=== PATIENT | female | born 1985 | race Caucasian/White ===

== ENCOUNTER 2017-11-20 13:09 | Emergency (ER) | payer MEDICAID ==
[~2017-11-20] VITALS: Ht 170.2 cm; Wt 103.0 kg
[~2017-11-20 13:09] MED LIST: CITA40TA19; CPR500T PO; METR500T PO; PENI500T PO; TRM50T PO
--- NOTE | 2017-11-20 13:55 | ED General ---
General Chief Complaint: Cough/Cold/Flu Symptoms Stated Complaint: MISSED PERIOD FOR 2 MOS/COUGH/RUNNY NOSE/FEVER Nursing Triage Note: first c/o is no period for 2 months. clinic did urine and lab draw 2 days ago- results neg. also staes daughter had flu and she has fever cough and soa since wed. Nursing Sepsis Screen: No Definite Risk Source of Information: Patient Exam Limitations: No Limitations History of Present Illness Date Seen by Provider: Nov 20, 2017 Time Seen by Provider: 13:53 Initial Comments To ER with reports of cough runny nose sore throat for 2 days. States that her daughter and sister tested positive for influenza. Also states that she's not had a period for 2 months which is very unusual for her. She has been seen by her primary care with a negative test. Denies abdominal pain. Timing/Duration: 1-2 Days Severity: Moderate Allergies and Home Medications Allergies Uncoded Allergies: CLINDOMYCIN (Allergy, Unknown, 11/20/17) hives Constitutional: see HPI EENTM: see HPI Respiratory: no symptoms reported Cardiovascular: no symptoms reported Genitourinary: no symptoms reported Musculoskeletal: no symptoms reported Skin: no symptoms reported Psychiatric/Neurological: No Symptoms Reported Hematologic/Lymphatic: No Symptoms Reported Past Onjnxsg-Eqites-Ijbhbt Hx Patient Social History Alcohol Use: Denies Use Recreational Drug Use: No 2nd Hand Smoke Exposure: No Recent Foreign Travel: No Contact w/Someone Who Travel: No Recent Infectious Disease Expo: Yes Recent Hopitalizations: No () Physical Abuse: No Sexual Abuse: No Mistreated: No Fear: No Immunizations Up To Date Tetanus Booster (TDap): Unknown Surgeries History of Surgeries: Yes ( x2) Respiratory History of Respiratory Disorde: No Cardiovascular History of Cardiac Disorders: No Neurological History of Neurological Disord: No Reproductive System Hx Reproductive Disorders: No (last pap smear was approx 1 year ago, denies h/ o an abnormal pap) Sexually Transmitted Disease: No Female Reproductive Disorders: Denies Genitourinary Genitourinary Disorders: Bladder Infection Gastrointestinal History of Gastrointestinal Di: No Musculoskeletal History of Musculoskeletal Dis: Yes Endocrine History of Endocrine Disorders: No Psychosocial History of Psychiatric Problem: Yes Behavioral Health Disorders: Depression Suicide Risk Score: 0 Integumentary History of Skin or Integumenta: No Blood Transfusions History of Blood Disorders: No Family Medical History Significant Family History: No Pertinent Family Hx Physical Exam Vital Signs Vital Signs - First Documented 11/20/17 13:27 Temp 100.0 Pulse 88 Resp 20 B/P (MAP) 134/90 (105) Pulse Ox 98 Capillary Refill : Less Than 3 Seconds General Appearance: No Apparent Distress, WD/WN Eyes: Bilateral Eye Normal Inspection, Bilateral Eye PERRL, Bilateral Eye EOMI HEENT: PERRL/EOMI, TMs Normal, Tonsillar Enlargement Respiratory: No Accessory Muscle Use, No Respiratory Distress Cardiovascular: Regular Rate, Rhythm Gastrointestinal: Normal Bowel Sounds Extremity: Normal Capillary Refill, Normal Inspection Neurologic/Psychiatric: Alert Skin: Normal Color, Warm/Dry Progress/Results/Core Measures Suspected Sepsis Recent Fever Within 48 Hours: Yes Infection Criteria Present: Suspected New Infection New/Unexplained Altered Menta: No Sepsis Screen: No Definite Risk Sepsis Diagnosis: SIRS Temperature:100.0 Pulse: 88 Respiratory Rate: 20 Blood Pressure 134 /90 Mean: 105 Results/Orders Vital Signs/I&O Vital Sign - Last 12Hours 11/20/17 13:27 Temp 100.0 Pulse 88 Resp 20 B/P (MAP) 134/90 (105) Pulse Ox 98 Capillary Refill : Less Than 3 Seconds Blood Pressure Mean: 105 Point of Care Testing Urine -Bedside: Negative Departure Impression Impression: Primary Impression: Influenza-like symptoms Disposition: 01 HOME, SELF-CARE Condition: Stable Departure-Patient Inst. Decision time for Depature: 13:54 Referrals: MARYA SELLERS DENNIS G MD NO,LOCAL PHYSICIAN (PCP) Primary Care Physician LINDSAY COCHRAN DO Patient Instructions: Flu, Adult (DC) Add. Discharge Instructions: 1. Call one of the curtain cleaner of your choosing today or Thursday to make an appointment to be seen. All discharge instructions reviewed with patient and/or family. Voiced understanding. ALEXANDER PAVON APRN Nov 20, 2017 13:55
[2017-11-20 14:50] VITALS: BP 134/90
--- OUTSIDE RECORDS SUMMARY | 2017-11-20 17:05 | XMS REPORT ---
Author Author MOMO ROSALES Organization [facility] Address [address] [place] [address] Care Team Providers Care Motor Vehicle Dispatcher Name Role Phone MOMO ROSALES Unavailable PROBLEMS Type Condition ICD9-CM Code [id number] Code Onset Dates Condition Status SNOMED Code Problem test positive V72.42 Active 267776868 Problem Gastroesophageal reflux disease, esophagitis presence not specified K21.9 Active 852679798 Problem Episodic mood disorder F39 Active 14150146 Problem Asthma, unspecified, unspecified status 493.90 Active 56881822 Problem Migraine, unspecified without mention of intractable migraine without mention of status migrainosus 346.90 Active 23849711 Problem Dysthymia F34.1 Active 31746332 Problem Bipolar depression F31.30 Active 98904552 Problem Abnormal menses N92.6 Active 452805888 Problem Rhinitis due to pollen J30.1 Active 51849673 Problem Dysuria R30.0 Active 99540573 Problem Mild intermittent asthma without complication J45.20 Active 009052617 ALLERGIES No Information SOCIAL HISTORY Never Assessed PLAN OF CARE VITAL SIGNS MEDICATIONS Medication Instructions Dosage Frequency Start Date End Date Duration Status [place]-28 0.15-30 MG-MCG Orally Once a day as directed 24h Jun, 90 days Active RESULTS No Results PROCEDURES No Known procedures IMMUNIZATIONS No Known Immunizations MEDICAL (GENERAL) HISTORY Type Description Date Medical History depression Medical History anxiety Medical History bipolar disorder Surgical History section 2006, 2007, 2009, 2015 Hospitalization History childbirth
--- OUTSIDE RECORDS SUMMARY | 2017-11-20 17:05 | XMS REPORT ---
Author Author MARYA ZAMAN [facility] Address [address] [place] [address] Care Team Providers Care Animal Care Taker Name Role Phone MARYA ZAMAN Unavailable PROBLEMS Type Condition ICD9-CM Code WBS11-II Code Onset Dates Condition Status SNOMED Code Problem Migraine, unspecified without mention of intractable migraine without mention of status migrainosus 346.90 Active 62971558 Problem test positive V72.42 Active 948807252 Problem Asthma, unspecified, unspecified status 493.90 Active 73878867 Problem Dysuria R30.0 Active 01376874 Problem Mild intermittent asthma without complication J45.20 Active 946730464 Problem Episodic mood disorder F39 Active 25326763 Problem Gastroesophageal reflux disease, esophagitis presence not specified K21.9 Active 205412966 Problem Rhinitis due to pollen J30.1 Active 83766167 Problem Abnormal menses N92.6 Active 492431119 ALLERGIES Unknown Allergies SOCIAL HISTORY No smoking Hx information available PLAN OF CARE VITAL SIGNS MEDICATIONS Medication Instructions Dosage Frequency Start Date End Date Duration Status Loratadine 10 mg Orally Once a day 1 tablet 24h Active RESULTS No Results PROCEDURES No Known procedures IMMUNIZATIONS No Known Immunizations
--- OUTSIDE RECORDS SUMMARY | 2017-11-20 17:05 | XMS REPORT ---
Author Author MOMO ROSALES Organization [facility] Address [address] [place] [address] Care Team Providers Care Staff Nurse Anesthetist Name Role Phone MOMO ROSALES Unavailable PROBLEMS Type Condition ICD9-CM Code [id number] Code Onset Dates Condition Status SNOMED Code Problem Migraine, unspecified without mention of intractable migraine without mention of status migrainosus 346.90 Active 77457273 Problem test positive V72.42 Active 441384860 Problem Asthma, unspecified, unspecified status 493.90 Active 26538442 Problem Dysuria R30.0 Active 37601852 Problem Mild intermittent asthma without complication J45.20 Active 099263304 Problem Episodic mood disorder F39 Active 40677737 Problem Gastroesophageal reflux disease, esophagitis presence not specified K21.9 Active 028102817 Problem Rhinitis due to pollen J30.1 Active 54968771 Problem Abnormal menses N92.6 Active 635339925 ALLERGIES Unknown Allergies SOCIAL HISTORY No smoking Hx information available PLAN OF CARE VITAL SIGNS MEDICATIONS Medication Instructions Dosage Frequency Start Date End Date Duration Status [place]-28 0.15-30 MG-MCG Orally as directed as directed Jun, Active RESULTS No Results PROCEDURES No Known procedures IMMUNIZATIONS No Known Immunizations
--- OUTSIDE RECORDS SUMMARY | 2017-11-20 17:05 | XMS REPORT ---
Author Author MOMO ROSALES Organization [facility] Address [address] [place] [address] Care Team Providers Care Bag Cutter Name Role Phone MOMO ROSALES Unavailable PROBLEMS Type Condition ICD9-CM Code [id number] Code Onset Dates Condition Status SNOMED Code Problem test positive V72.42 Active 463688673 Problem Gastroesophageal reflux disease, esophagitis presence not specified K21.9 Active 288404688 Problem Episodic mood disorder F39 Active 24197476 Problem Asthma, unspecified, unspecified status 493.90 Active 47375655 Problem Migraine, unspecified without mention of intractable migraine without mention of status migrainosus 346.90 Active 01587524 Problem Dysthymia F34.1 Active 94437194 Problem Bipolar depression F31.30 Active 37102503 Problem Abnormal menses N92.6 Active 760729314 Problem Rhinitis due to pollen J30.1 Active 64252598 Problem Dysuria R30.0 Active 76813385 Problem Mild intermittent asthma without complication J45.20 Active 924792466 ALLERGIES Substance Reaction Event Type Date Status Clindamycin rash Drug Allergy February, Active SOCIAL HISTORY Never Assessed PLAN OF CARE Activity Details Follow Up prn Reason: VITAL SIGNS Height 67.25 in 2017-02-12 Weight 244.1 lbs 2017-02-12 Temperature 98 degrees Fahrenheit 2017-02-12 Heart Rate 74 bpm 2017-02-12 Respiratory Rate 16 2017-02-12 BMI 37.94 kg/m2 2017-02-12 Blood pressure systolic 128 mmHg 2017-02-12 Blood pressure diastolic 70 mmHg 2017-02-12 MEDICATIONS Medication Instructions Dosage Frequency Start Date End Date Duration Status [place]-28 0.15-30 MG-MCG Orally Once a day as directed 24h Jun, 30 days Active Prilosec 40 MG TAKE ONE (1) CAPSULE BY MOUTH ONCE DAILY... Active Albuterol Sulfate HFA 108 (90 Base) MCG/ACT Inhalation every 4 hrs 2 puffs as needed 4h 04 Mar, 2015 Active Venlafaxine HCl 100 MG Orally twice a day 1 tablet with food 12h Oct, Active Lamictal 100 mg Orally Once a day 1 tablets qhs 24h Oct, Active RESULTS Name Result Date Reference Range TEST, URINE (IN HOUSE) 2017-02-12 RESULTS negative Lot # [id number] Control + Exp date 02/01/2018 PROCEDURES Procedure Date Ordered Result Body Site URINE TEST February 12, 2017 IMMUNIZATIONS No Known Immunizations MEDICAL (GENERAL) HISTORY Type Description Date Medical History depression Medical History anxiety Medical History bipolar disorder Surgical History section 2006, 2007, 2009, 2015 Hospitalization History childbirth
--- OUTSIDE RECORDS SUMMARY | 2017-11-20 17:05 | XMS REPORT ---
Author Author MARYA ZAMAN [facility] Address [address] [place] [address] Care Team Providers Care Informatics Physician Liaison Name Role Phone MARYA ZAMAN Unavailable PROBLEMS Type Condition ICD9-CM Code SMS02-EA Code Onset Dates Condition Status SNOMED Code Problem test positive V72.42 Active 780845855 Problem Gastroesophageal reflux disease, esophagitis presence not specified K21.9 Active 503519329 Problem Episodic mood disorder F39 Active 46837931 Problem Asthma, unspecified, unspecified status 493.90 Active 09073465 Problem Migraine, unspecified without mention of intractable migraine without mention of status migrainosus 346.90 Active 28313830 Problem Dysthymia F34.1 Active 38792596 Problem Bipolar depression F31.30 Active 52304522 Problem Abnormal menses N92.6 Active 635256280 Problem Rhinitis due to pollen J30.1 Active 50474653 Problem Dysuria R30.0 Active 91110621 Problem Mild intermittent asthma without complication J45.20 Active 574719368 ALLERGIES No Information SOCIAL HISTORY Never Assessed PLAN OF CARE VITAL SIGNS MEDICATIONS No Known Medications RESULTS No Results PROCEDURES No Known procedures IMMUNIZATIONS No Known Immunizations MEDICAL (GENERAL) HISTORY Type Description Date Medical History depression Medical History anxiety Medical History bipolar disorder Surgical History section 2006, 2007, 2009, 2015 Hospitalization History childbirth
--- OUTSIDE RECORDS SUMMARY | 2017-11-20 17:05 | XMS REPORT ---
Author Author MARYA ZAMAN [facility] [employer] Address Unknown Phone Unavailable Care Team Providers Care Insole Reinforcer Name Role Phone MARYA ZAMAN CP Unavailable Allergies, Adverse Reactions, Alerts Substance Reaction Event Type Clindamycin rash Drug Allergy Problems Problem Type Condition Code Onset Dates Condition Status Assessment Mild intermittent asthma without complication J45.20 Active Assessment Episodic mood disorder F39 Active Problem Heartburn 787.1 Active Problem Other specified symptom associated with female genital organs 625.8 Active Problem Abdominal pain, other specified site 789.09 Active Problem Leukorrhea, not specified as infective 623.5 Active Problem Felon 681.01 Active Problem Unspecified episodic mood disorder 296.90 Active Problem Unspecified acute nonsuppurative otitis media 381.00 Active Problem Allergic rhinitis, cause unspecified 477.9 Active Problem Unspecified infective otitis externa 380.10 Active Problem Rhinitis due to pollen J30.1 Active Problem Abnormal menses N92.6 Active Problem Candidiasis of vulva and vagina 112.1 Active Problem General counseling for prescription of oral contraceptives V25.01 Active Problem Mild intermittent asthma without complication J45.20 Active Problem Periapical abscess without sinus 522.5 Active Problem test positive V72.42 Active Problem Cellulitis and abscess of leg, except foot 682.6 Active Problem Episodic mood disorder F39 Active Problem Gastroesophageal reflux disease, esophagitis presence not specified K21.9 Active Problem Migraine, unspecified without mention of intractable migraine without mention of status migrainosus 346.90 Active Problem Screening for malignant neoplasm of the cervix V76.2 Active Problem Unspecified disorder of menstruation and other abnormal bleeding from female genital tract 626.9 Active Problem Screening examination for venereal disease V74.5 Active Problem Unspecified breast screening V76.10 Active Problem Unspecified contraceptive management V25.9 Active Problem Asthma, unspecified, unspecified status 493.90 Active Problem Ingrowing nail 703.0 Active Medications Medication Code System Code Instructions Start Date End Date Status Dosage Albuterol Sulfate A [facility] [address]-22 108 (90 Base) MCG/ACT Inhalation every 4 hrs March 08, 2015 2 puffs as needed Loratadine [facility] [address]-11 10 mg Orally Once a day January 03, 2016 1 tablet Sertraline HCl [facility] [address]-39 100 MG Orally Once a day March 08, 2015 1 tablet Ortho-Cyclen (28) [facility] [address]-58 0.25-35 MG-MCG Orally Once a day January 03, 2016 1 tablet Omeprazole [facility] [address]-26 40 MG Orally Once a day Nov 28, 2015 1 capsule Lamictal [facility] [address]-67 25 MG Orally Once a day at hs March 08, 2015 2tablets Procedures Procedure Coding System Code Date Office Visit, Est Pt., Level 3 CPT-4 93089 January 17, 2016 Vital Signs Date/Time: January 17, 2016 Temperature 97.2 F Weight 235.8 lbs Height 67.25 in BMI 36.65 Index Blood Pressure Diastolic 71 mmHg Blood Pressure Systolic 121 mmHg Cardiac Monitoring Heart Rate 76 bpm Results No Known Results Summary Purpose [employer] Submission
--- OUTSIDE RECORDS SUMMARY | 2017-11-20 17:05 | XMS REPORT ---
Author Author MARYA ZAMAN [facility] Address [address] [place] [address] Care Team Providers Care Tree Planter Name Role Phone MARYA ZAMAN Unavailable PROBLEMS Type Condition ICD9-CM Code TIP00-WU Code Onset Dates Condition Status SNOMED Code Problem test positive V72.42 Active 940701641 Problem Gastroesophageal reflux disease, esophagitis presence not specified K21.9 Active 580817297 Problem Episodic mood disorder F39 Active 13585948 Problem Asthma, unspecified, unspecified status 493.90 Active 65199169 Problem Migraine, unspecified without mention of intractable migraine without mention of status migrainosus 346.90 Active 47142737 Problem Dysthymia F34.1 Active 87493610 Problem Bipolar depression F31.30 Active 25929899 Problem Abnormal menses N92.6 Active 745931049 Problem Rhinitis due to pollen J30.1 Active 46524030 Problem Dysuria R30.0 Active 71528836 Problem Mild intermittent asthma without complication J45.20 Active 933042955 ALLERGIES No Information SOCIAL HISTORY Never Assessed PLAN OF CARE VITAL SIGNS MEDICATIONS Medication Instructions Dosage Frequency Start Date End Date Duration Status Venlafaxine HCl 75 MG Orally Once a day 1 tablet with food 24h Oct, Active RESULTS No Results PROCEDURES No Known procedures IMMUNIZATIONS No Known Immunizations MEDICAL (GENERAL) HISTORY Type Description Date Medical History depression Medical History anxiety Medical History bipolar disorder Surgical History section 2006, 2008, 2009, 2016 Hospitalization History childbirth
--- OUTSIDE RECORDS SUMMARY | 2017-11-20 17:05 | XMS REPORT ---
Author Author MOMO ROSALES [facility] Address [address] [place] [address] Care Team Providers Care Hog Cutter Name Role Phone MOMO ROSALES Unavailable PROBLEMS Type Condition ICD9-CM Code YSF76-XL Code Onset Dates Condition Status SNOMED Code Assessment Encounter for surveillance of transdermal patch hormonal contraceptive device Z30.49 16 Jun, 2016 Active 638849949 Problem Asthma, unspecified, unspecified status 493.90 Active 30746721 Problem Migraine, unspecified without mention of intractable migraine without mention of status migrainosus 346.90 Active 32686155 Assessment Bruising T14.8 16 Jun, 2016 Active 075781064 Assessment Contraceptive education Z30.09 16 Jun, 2016 Active 922751232 Problem Mild intermittent asthma without complication J45.20 Active 811832600 Problem Rhinitis due to pollen J30.1 Active 70437600 Problem Gastroesophageal reflux disease, esophagitis presence not specified K21.9 Active 795832034 Problem test positive V72.42 Active 194514385 Problem Abnormal menses N92.6 Active 971499551 Problem Episodic mood disorder F39 Active 86138636 ALLERGIES Substance Reaction Event Type Date Status Clindamycin rash Drug Allergy Jun, Active SOCIAL HISTORY No smoking Hx information available PLAN OF CARE VITAL SIGNS Height 67.25 in 2016-06-20 Weight 251.2 lbs 2016-06-20 BMI 39.05 kg/m2 2016-06-20 MEDICATIONS Medication Instructions Dosage Frequency Start Date End Date Duration Status Loratadine 10 mg Orally Once a day 1 tablet 24h Active HydrOXYzine HCl 25 MG Orally Once a day 1-2 tablet as needed at bedtime 24h Active Omeprazole 40 mg Orally Once a day 1 capsule 24h Nov, Active Latuda 60 MG Orally Once a day 1 tablet with food 24h Active Albuterol Sulfate HFA 108 (90 Base) MCG/ACT Inhalation every 4 hrs 2 puffs as needed 4h Mar, Active Norelgestromin-Eth Estradiol 150-35 MCG/24HR 1 patch to skin 16 Jun, 2016 21 day(s) Active Ortho-Cyclen (28) 0.25-35 MG-MCG Orally Once a day 1 tablet 24h Dec, Active RESULTS Name Result Date Reference Range HEMOGLOBIN (IN HOUSE) 2016-06-20 HEMOGLOBIN 12.0 11.5 - 16 gm/dL Lot # [id number] Exp date 11/15/16 TEST, URINE (IN HOUSE) 2016-06-20 RESULTS neg Lot # [id number] Control + Exp date 12/20 PROCEDURES Procedure Date Ordered Related Diagnosis Body Site URINE TEST Jun 20, 2016 Office Visit, Est Pt., Level 3 Jun 20, 2016 HEMOGLOBIN Jun 20, 2016 IMMUNIZATIONS No Known Immunizations
--- OUTSIDE RECORDS SUMMARY | 2017-11-20 17:05 | XMS REPORT ---
Author Author MOMO ROSALES [facility] Address [address] [place] [address] Care Team Providers Care Sharepoint Net Developer Name Role Phone MOMO ROSALES Unavailable PROBLEMS Type Condition ICD9-CM Code PGD55-WT Code Onset Dates Condition Status SNOMED Code Problem Migraine, unspecified without mention of intractable migraine without mention of status migrainosus 346.90 Active 70466466 Problem test positive V72.42 Active 346026183 Problem Asthma, unspecified, unspecified status 493.90 Active 28792016 Assessment Frequency of urination R35.0 Jun, Active 405325239 Assessment Encounter for initial prescription of contraceptive pills Z30.011 Jun, Active 88700051 Problem Dysuria R30.0 Active 07982050 Problem Mild intermittent asthma without complication J45.20 Active 031430755 Problem Episodic mood disorder F39 Active 32152459 Problem Gastroesophageal reflux disease, esophagitis presence not specified K21.9 Active 331801067 Problem Rhinitis due to pollen J30.1 Active 72476083 Problem Abnormal menses N92.6 Active 641921122 ALLERGIES Substance Reaction Event Type Date Status Clindamycin rash Drug Allergy Jun, Active SOCIAL HISTORY No smoking Hx information available PLAN OF CARE VITAL SIGNS Height 67.25 in 2016-07-03 Weight 252 lbs 2016-07-03 Heart Rate 70 bpm 2016-07-03 Respiratory Rate 16 2016-07-03 BMI 39.17 kg/m2 2016-07-03 Blood pressure systolic 122 mmHg 2016-07-03 Blood pressure diastolic 70 mmHg 2016-07-03 MEDICATIONS Medication Instructions Dosage Frequency Start Date End Date Duration Status Albuterol Sulfate HFA 108 (90 Base) MCG/ACT Inhalation every 4 hrs 2 puffs as needed 4h Mar, Active Ortho-Cyclen (28) 0.25-35 MG-MCG Orally Once a day 1 tablet 24h Dec, Active Loratadine 10 mg Orally Once a day 1 tablet 24h Active [place]-28 0.15-30 MG-MCG Orally as directed as directed Jun, Active Cipro 500 MG Orally Twice a day 1 tablet 12h Jun, Jul, 07 days Active Latuda 60 MG Orally Once a day 1 tablet with food 24h Active HydrOXYzine HCl 25 MG Orally Once a day 1-2 tablet as needed at bedtime 24h Active RESULTS Name Result Date Reference Range TEST, URINE (IN HOUSE) 2016-07-03 RESULTS negative Lot # [id number] Control + Exp date 01/03/16 UA LONG DIP (IN HOUSE) 2016-07-03 Lot # [id number] Exp date 08/21 Clarity clear Color yellow Odor no GLU neg JAVI neg KET neg SG 1.020 BLO trace-lysed pH 5.5 Protein neg URO 0.2 NIT neg MINOR 2+ Lot # Exp date CULTURE, URINE 2016-07-03 Urine Culture, Routine Final report Result 1 Antimicrobial Susceptibility PROCEDURES Procedure Date Ordered Related Diagnosis Body Site Office Visit, Est Pt., Level 3 Jul 03, 2016 URINALYSIS, AUTO, W/O SCOPE Jul 03, 2016 URINE TEST Jul 03, 2016 LAB NOT BILLED BY [facility] Jul 03, 2016 IMMUNIZATIONS No Known Immunizations
--- OUTSIDE RECORDS SUMMARY | 2017-11-20 17:06 | XMS REPORT ---
Author Author MARYA ZAMAN Organization [employer] Address Unknown Phone Unavailable Care Team Providers Care Charger Name Role Phone MARYA ZAMAN CP Unavailable Allergies No Known Allergies Problems Problem Type Condition Code Onset Dates Condition Status Problem Heartburn 787.1 Active Problem Other specified [...] Active Problem Ingrowing nail 703.0 Active Medications No Known Medications Results No Known Results Summary Purpose [employer] Submission
--- OUTSIDE RECORDS SUMMARY | 2017-11-20 17:06 | XMS REPORT ---
Author Author MARYA ZAMAN [facility] Address [address] [place] [address] Care Team Providers Care Lead Architect Name Role Phone MARYA ZAMAN Unavailable PROBLEMS Type Condition ICD9-CM Code [id number] Code Onset Dates Condition Status SNOMED Code Problem test positive V72.42 Active 061733135 Problem Gastroesophageal reflux disease, esophagitis presence not specified K21.9 Active 470494179 Problem Episodic mood disorder F39 Active 27466817 Problem Asthma, unspecified, unspecified status 493.90 Active 33225241 Problem Migraine, unspecified without mention of intractable migraine without mention of status migrainosus 346.90 Active 14688087 Problem Dysthymia F34.1 Active 75316723 Problem Bipolar depression F31.30 Active 63886473 Problem Abnormal menses N92.6 Active 014757571 Problem Rhinitis due to pollen J30.1 Active 35848437 Problem Dysuria R30.0 Active 46666387 Problem Mild intermittent asthma without complication J45.20 Active 573007837 ALLERGIES No Information SOCIAL HISTORY Never Assessed PLAN OF CARE VITAL SIGNS MEDICATIONS Medication Instructions Dosage Frequency Start Date End Date Duration Status Venlafaxine HCl 37.5 MG Orally Twice a day 1 tablet with food 12h Oct, Active RESULTS No Results PROCEDURES No Known procedures IMMUNIZATIONS No Known Immunizations MEDICAL (GENERAL) HISTORY Type Description Date Medical History depression Medical History anxiety Medical History bipolar disorder Surgical History section 2006, 2008, 2009, 2015 Hospitalization History childbirth
--- OUTSIDE RECORDS SUMMARY | 2017-11-20 17:06 | XMS REPORT ---
Author Author MARYA ZAMAN [facility] Address [address] [place] [address] Care Team Providers Care Semiconductor Processor Name Role Phone MARYA ZAMAN Unavailable PROBLEMS Type Condition ICD9-CM Code [id number] Code Onset Dates Condition Status SNOMED Code Problem test positive V72.42 Active 688446058 Problem Gastroesophageal reflux disease, esophagitis presence not specified K21.9 Active 106672668 Problem Episodic mood disorder F39 Active 17655482 Problem Asthma, unspecified, unspecified status 493.90 Active 75868483 Problem Migraine, unspecified without mention of intractable migraine without mention of status migrainosus 346.90 Active 49640013 Problem Dysthymia F34.1 Active 77484235 Problem Bipolar depression F31.30 Active 75345529 Problem Abnormal menses N92.6 Active 797053732 Problem Rhinitis due to pollen J30.1 Active 70220182 Problem Dysuria R30.0 Active 24845063 Problem Mild intermittent asthma without complication J45.20 Active 024991979 ALLERGIES Substance Reaction Event Type Date Status Clindamycin rash Drug Allergy Dec, Active SOCIAL HISTORY Never Assessed PLAN OF CARE Activity Details Follow Up 4 Weeks Reason:bipolar VITAL SIGNS Height 67.25 in 2016-12-18 Weight 246.1 lbs 2016-12-18 Temperature 98.6 degrees Fahrenheit 2016-12-18 Heart Rate 74 bpm 2016-12-18 Respiratory Rate 14 2016-12-18 BMI 38.25 kg/m2 2016-12-18 Blood pressure systolic 122 mmHg 2016-12-18 Blood pressure diastolic 70 mmHg 2016-12-18 MEDICATIONS Medication Instructions Dosage Frequency Start Date End Date Duration Status Prilosec 40 MG TAKE ONE (1) CAPSULE BY MOUTH ONCE DAILY... Active Jennifer-28 0.15-30 MG-MCG Orally Once a day as directed 24h Jun, 90 days Active Amoxicillin 500 MG Orally every 8 hrs 1 tablet 8h 7 days Active Venlafaxine HCl 75 MG Orally twice a day 1 tablet with food 12h Oct, Active Lamictal 100 MG Orally Once a day 1 tablets qhs 24h Oct, Active RESULTS No Results PROCEDURES No Known procedures IMMUNIZATIONS No Known Immunizations MEDICAL (GENERAL) HISTORY Type Description Date Medical History depression Medical History anxiety Medical History bipolar disorder Surgical History section 2006, 2007, 2009, 2015 Hospitalization History childbirth
--- OUTSIDE RECORDS SUMMARY | 2017-11-20 17:06 | XMS REPORT ---
Author Author MOMO ROSALES [facility] [address] Address [address] [place] [address] Care Team Providers Care Disk Sander Name Role Phone MOMO ROSALES Unavailable PROBLEMS Type Condition ICD9-CM Code [id number] Code Onset Dates Condition Status SNOMED Code Problem test positive V72.42 Active 273460099 Problem Gastroesophageal reflux disease, esophagitis presence not specified K21.9 Active 151551856 Problem Episodic mood disorder F39 Active 42641101 Problem Asthma, unspecified, unspecified status 493.90 Active 28789216 Problem Migraine, unspecified without mention of intractable migraine without mention of status migrainosus 346.90 Active 00687534 Problem Dysthymia F34.1 Active 92438401 Problem Bipolar depression F31.30 Active 87223493 Problem Abnormal menses N92.6 Active 354966066 Problem Rhinitis due to pollen J30.1 Active 62830368 Problem Dysuria R30.0 Active 30105330 Problem Mild intermittent asthma without complication J45.20 Active 619667343 ALLERGIES Substance Reaction Event Type Date Status Clindamycin rash Drug Allergy Oct, Active SOCIAL HISTORY No smoking Hx information available PLAN OF CARE Activity Details Follow Up prn Reason: VITAL SIGNS Height 67.25 in 2016-10-23 Weight 243.8 lbs 2016-10-23 Temperature 97.0 degrees Fahrenheit 2016-10-23 Heart Rate 68 bpm 2016-10-23 Respiratory Rate 16 2016-10-23 BMI 37.90 kg/m2 2016-10-23 Blood pressure systolic 110 mmHg 2016-10-23 Blood pressure diastolic 76 mmHg 2016-10-23 MEDICATIONS Medication Instructions Dosage Frequency Start Date End Date Duration Status Prilosec 40 MG TAKE ONE (1) CAPSULE BY MOUTH ONCE DAILY... Active Albuterol Sulfate HFA 108 (90 Base) MCG/ACT Inhalation every 4 hrs 2 puffs as needed 4h 04 Mar, 2015 Active Hydrocortisone Acetate 1 % Externally Twice a day as directed 12h Oct, Active Jennifer-28 0.15-30 MG-MCG Orally as directed as directed Jun, Active Loratadine 10 mg Orally Once a day 1 tablet 24h Active RESULTS No Results PROCEDURES Procedure Date Ordered Related Diagnosis Body Site KENALOG 40 MG/ML (PER 10 MG) Oct 23, 2016 THER/PROPH/DIAG INJ, SC/IM Oct 23, 2016 Office Visit, Est Pt., Level 3 Oct 23, 2016 IMMUNIZATIONS Vaccine Route Administration Date Status KENALOG 40 MG/ML (PER 10 MG) IM Intramuscular Oct 23, 2016 Administered
--- OUTSIDE RECORDS SUMMARY | 2017-11-20 17:07 | XMS REPORT | Continuity of Care Document ---
Author Author [facility] Organization [facility] Address Unknown Phone Unavailable Allergies Active Description Code Type Severity Reaction Onset Reported/Identified Relationship to Patient Clinical Status Yes clindamycin Drug Allergy N/A N/A 06/14/2013 Medications There is no data. Problems Date Dx Coded Attending Type Code Diagnosis Diagnosed By 08/27/2009 SHANNEN ROUSE MD V72.41 TEST NEGATIVE RESULT 08/27/2009 V72.41 TEST NEGATIVE RESULT 08/27/2009 V72.41 TEST NEGATIVE RESULT 08/27/2009 V72.41 TEST NEGATIVE RESULT 08/27/2009 V72.41 TEST NEGATIVE RESULT 08/27/2009 V72.41 TEST NEGATIVE RESULT 08/27/2009 MALENA NEWTON APRN V72.41 TEST NEGATIVE RESULT 08/27/2009 BENNETT DO, GREER K V72.41 TEST NEGATIVE RESULT 08/27/2009 BENNETT DO, GREER K V72.41 TEST NEGATIVE RESULT 08/27/2009 BENNETT DO, GREER K V72.41 TEST NEGATIVE RESULT 08/27/2009 MARYA ZAMAN APRN V72.41 TEST NEGATIVE RESULT 08/27/2009 BENNETT DO, GREER K V72.41 TEST NEGATIVE RESULT 08/27/2009 KAUR PALACIO APRN V72.41 TEST NEGATIVE RESULT 08/27/2009 MARYA ZAMAN APRN V72.41 TEST NEGATIVE RESULT 08/27/2009 BENNETT DO, GREER K V72.41 TEST NEGATIVE RESULT 08/27/2009 BENNETT DO, GREER K V72.41 TEST NEGATIVE RESULT 08/27/2009 BENNETT DO, GREER K V72.41 TEST NEGATIVE RESULT 08/27/2009 BENNETT DO, GREER K V72.41 TEST NEGATIVE RESULT 08/27/2009 YESENIA BARNHART DDS V72.41 TEST NEGATIVE RESULT 08/27/2009 BENNETT DO, GREER K V72.41 TEST NEGATIVE RESULT 08/27/2009 BENNETT DO, GREER K V72.41 TEST NEGATIVE RESULT 08/27/2009 BENNETT DO, GREER K V72.41 TEST NEGATIVE RESULT 08/27/2009 DANY SLAUGHTER APRN V72.41 TEST NEGATIVE RESULT 08/27/2009 V72.41 TEST NEGATIVE RESULT 11/26/2009 SHANNEN ROUSE MD 626.0 ABSENCE OF MENSTRUATION 11/26/2009 626.0 ABSENCE OF MENSTRUATION 11/26/2009 626.0 ABSENCE OF MENSTRUATION 11/26/2009 626.0 ABSENCE OF MENSTRUATION 11/26/2009 626.0 ABSENCE OF MENSTRUATION 11/26/2009 626.0 ABSENCE OF MENSTRUATION 11/26/2009 MALENA NWETON APRN 626.0 ABSENCE OF MENSTRUATION 11/26/2009 BENNETT DO, GREER K 626.0 ABSENCE OF MENSTRUATION 11/26/2009 BENNETT DO, GREER K 626.0 ABSENCE OF MENSTRUATION 11/26/2009 BENNETT DO, RGEER K 626.0 ABSENCE OF MENSTRUATION 11/26/2009 MARYA ZAMAN APRN 626.0 ABSENCE OF MENSTRUATION 11/26/2009 BENNETT DO, GREER K 626.0 ABSENCE OF MENSTRUATION 11/26/2009 KAUR PALACIO APRN 626.0 ABSENCE OF MENSTRUATION 11/26/2009 MARYA ZAMAN APRN 626.0 ABSENCE OF MENSTRUATION 11/26/2009 BENNETT DO, RGEER K 626.0 ABSENCE OF MENSTRUATION 11/26/2009 BENNETT DO, GREER K 626.0 ABSENCE OF MENSTRUATION 11/26/2009 BENNETT DO, GREER K 626.0 ABSENCE OF MENSTRUATION 11/26/2009 BENNETT DO, GREER K 626.0 ABSENCE OF MENSTRUATION 11/26/2009 YESENIA BARNHART DDS 626.0 ABSENCE OF MENSTRUATION 11/26/2009 BENNETT DO, GREER K 626.0 ABSENCE OF MENSTRUATION 11/26/2009 BENNETT DO, GREER K 626.0 ABSENCE OF MENSTRUATION 11/26/2009 BENNETT DO, GREER K 626.0 ABSENCE OF MENSTRUATION 11/26/2009 DANY SLAUGHTER APRN 626.0 ABSENCE OF MENSTRUATION 11/26/2009 626.0 ABSENCE OF MENSTRUATION 08/15/2010 SHANNEN ROUSE MD 465.9 UPPER RESPIRATORY INFECTION 08/15/2010 SHANNEN ROUSE MD 919.4 INSECT BITE NONVENOMOUS OF OTHER MULTIPLE AND UNSPECIFIED SITES WITHOUT INFECTION 08/15/2010 465.9 UPPER RESPIRATORY INFECTION 08/15/2010 919.4 INSECT BITE NONVENOMOUS OF OTHER MULTIPLE AND UNSPECIFIED SITES WITHOUT INFECTION 08/15/2010 465.9 UPPER RESPIRATORY INFECTION 08/15/2010 919.4 INSECT BITE NONVENOMOUS OF OTHER MULTIPLE AND UNSPECIFIED SITES WITHOUT INFECTION 08/15/2010 465.9 UPPER RESPIRATORY INFECTION 08/15/2010 919.4 INSECT BITE NONVENOMOUS OF OTHER MULTIPLE AND UNSPECIFIED SITES WITHOUT INFECTION 08/15/2010 465.9 UPPER RESPIRATORY INFECTION 08/15/2010 919.4 INSECT BITE NONVENOMOUS OF OTHER MULTIPLE AND UNSPECIFIED SITES WITHOUT INFECTION 08/15/2010 465.9 UPPER RESPIRATORY INFECTION 08/15/2010 919.4 INSECT BITE NONVENOMOUS OF OTHER MULTIPLE AND UNSPECIFIED SITES WITHOUT INFECTION 08/15/2010 LAMAR SCRAP BUNCH MAKER, MALENA A 465.9 UPPER RESPIRATORY INFECTION 08/15/2010 LAMAR SCRAP BUNCH MAKER, MALENA A 919.4 INSECT BITE NONVENOMOUS OF OTHER MULTIPLE AND UNSPECIFIED SITES WITHOUT INFECTION 08/15/2010 BENNETT DO, GREER K 465.9 UPPER RESPIRATORY INFECTION 08/15/2010 BENNETT DO, GREER K 919.4 INSECT BITE NONVENOMOUS OF OTHER MULTIPLE AND UNSPECIFIED SITES WITHOUT INFECTION 08/15/2010 BENNETT DO, GREER K 465.9 UPPER RESPIRATORY INFECTION 08/15/2010 BENNETT DO, GREER K 919.4 INSECT BITE NONVENOMOUS OF OTHER MULTIPLE AND UNSPECIFIED SITES WITHOUT INFECTION 08/15/2010 BENNETT DO, GREER K 465.9 UPPER RESPIRATORY INFECTION 08/15/2010 BENNETT DO, GREER K 919.4 INSECT BITE NONVENOMOUS OF OTHER MULTIPLE AND UNSPECIFIED SITES WITHOUT INFECTION 08/15/2010 MARYA ZAMAN APRN 465.9 UPPER RESPIRATORY INFECTION 08/15/2010 MARYA ZAMAN APRN 919.4 INSECT BITE NONVENOMOUS OF OTHER MULTIPLE AND UNSPECIFIED SITES WITHOUT INFECTION 08/15/2010 BENNETT DO GREER K 465.9 UPPER RESPIRATORY INFECTION 08/15/2010 BENNETT DO GREER K 919.4 INSECT BITE NONVENOMOUS OF OTHER MULTIPLE AND UNSPECIFIED SITES WITHOUT INFECTION 08/15/2010 HELLWIG SCRAP BUNCH MAKER, KAUR E 465.9 UPPER RESPIRATORY INFECTION 08/15/2010 HELLWIG SCRAP BUNCH MAKER, KAUR E 919.4 INSECT BITE NONVENOMOUS OF OTHER MULTIPLE AND UNSPECIFIED SITES WITHOUT INFECTION 08/15/2010 ZAMAN SCRAP BUNCH MAKER, MARYA R 465.9 UPPER RESPIRATORY INFECTION 08/15/2010 ZAMAN SCRAP BUNCH MAKER, MARYA R 919.4 INSECT BITE NONVENOMOUS OF OTHER MULTIPLE AND UNSPECIFIED SITES WITHOUT INFECTION 08/15/2010 BENNETT DO, GREER K 465.9 UPPER RESPIRATORY INFECTION 08/15/2010 BENNETT DO, GREER K 919.4 INSECT BITE NONVENOMOUS OF OTHER MULTIPLE AND UNSPECIFIED SITES WITHOUT INFECTION 08/15/2010 BENNETT DO, GREER K 465.9 UPPER RESPIRATORY INFECTION 08/15/2010 BENNETT DO, GREER K 919.4 INSECT BITE NONVENOMOUS OF OTHER MULTIPLE AND UNSPECIFIED SITES WITHOUT INFECTION 08/15/2010 BENNETT DO, GREER K 465.9 UPPER RESPIRATORY INFECTION 08/15/2010 BENNETT DO, GREER K 919.4 INSECT BITE NONVENOMOUS OF OTHER MULTIPLE AND UNSPECIFIED SITES WITHOUT INFECTION 08/15/2010 BENNETT DO, GREER K 465.9 UPPER RESPIRATORY INFECTION 08/15/2010 BENNETT DO, GREER K 919.4 INSECT BITE NONVENOMOUS OF OTHER MULTIPLE AND UNSPECIFIED SITES WITHOUT INFECTION 08/15/2010 WHITE DDS, YESENIA D 465.9 UPPER RESPIRATORY INFECTION 08/15/2010 WHITE DDS, YESENIA D 919.4 INSECT BITE NONVENOMOUS OF OTHER MULTIPLE AND UNSPECIFIED SITES WITHOUT INFECTION 08/15/2010 BENNETT DO, GREER K 465.9 UPPER RESPIRATORY INFECTION 08/15/2010 BENNETT DO, GREER K 919.4 INSECT BITE NONVENOMOUS OF OTHER MULTIPLE AND UNSPECIFIED SITES WITHOUT INFECTION 08/15/2010 BENNETT DO, GREER K 465.9 UPPER RESPIRATORY INFECTION 08/15/2010 BENNETT DO, GREER K 919.4 INSECT BITE NONVENOMOUS OF OTHER MULTIPLE AND UNSPECIFIED SITES WITHOUT INFECTION 08/15/2010 BENNETT DO, GREER K 465.9 UPPER RESPIRATORY INFECTION 08/15/2010 BENNETT DO, GREER K 919.4 INSECT BITE NONVENOMOUS OF OTHER MULTIPLE AND UNSPECIFIED SITES WITHOUT INFECTION 08/15/2010 DANY SLAUGHETR APRN 465.9 UPPER RESPIRATORY INFECTION 08/15/2010 DANY SLAUGHTER APRN 919.4 INSECT BITE NONVENOMOUS OF OTHER MULTIPLE AND UNSPECIFIED SITES WITHOUT INFECTION 08/15/2010 465.9 UPPER RESPIRATORY INFECTION 08/15/2010 919.4 INSECT BITE NONVENOMOUS OF OTHER MULTIPLE AND UNSPECIFIED SITES WITHOUT INFECTION 08/23/2010 SHANNEN ROUSE MD 696.3 PITYRIASIS ROSEA 08/23/2010 696.3 PITYRIASIS ROSEA 08/23/2010 696.3 PITYRIASIS ROSEA 08/23/2010 696.3 PITYRIASIS ROSEA 08/23/2010 696.3 PITYRIASIS ROSEA 08/23/2010 696.3 PITYRIASIS ROSEA 08/23/2010 MALENA NEWTON APRN 696.3 PITYRIASIS ROSEA 08/23/2010 BENNETT DO, GREER K 696.3 PITYRIASIS ROSEA 08/23/2010 BENNETT DO, GREER K 696.3 PITYRIASIS ROSEA 08/23/2010 BENNETT DO, GREER K 696.3 PITYRIASIS ROSEA 08/23/2010 MARYA ZAMAN APRN 696.3 PITYRIASIS ROSEA 08/23/2010 BENNETT DO, GREER K 696.3 PITYRIASIS ROSEA 08/23/2010 KAUR PALACIO APRN 696.3 PITYRIASIS ROSEA 08/23/2010 MARYA ZAMAN APRN 696.3 PITYRIASIS ROSEA 08/23/2010 BENNETT DO, GREER K 696.3 PITYRIASIS ROSEA 08/23/2010 BENNETT DO, GREER K 696.3 PITYRIASIS ROSEA 08/23/2010 BENNETT DO, GREER K 696.3 PITYRIASIS ROSEA 08/23/2010 BENNETT DO, GREER K 696.3 PITYRIASIS ROSEA 08/23/2010 YESENIA BARNHART DDS 696.3 PITYRIASIS ROSEA 08/23/2010 BENNETT DO, GREER K 696.3 PITYRIASIS ROSEA 08/23/2010 BENNETT DO, GREER K 696.3 PITYRIASIS ROSEA 08/23/2010 BENNETT DO, GREER K 696.3 PITYRIASIS ROSEA 08/23/2010 DANY SLAUGHTER APRN 696.3 PITYRIASIS ROSEA 08/23/2010 696.3 PITYRIASIS ROSEA 01/14/2011 SHANNEN ROUSE MD V72.42 EXAMINATION OR TEST POSITIVE RESULT 01/14/2011 V72.42 EXAMINATION OR TEST POSITIVE RESULT 01/14/2011 V72.42 EXAMINATION OR TEST POSITIVE RESULT 01/14/2011 V72.42 EXAMINATION OR TEST POSITIVE RESULT 01/14/2011 V72.42 EXAMINATION OR TEST POSITIVE RESULT 01/14/2011 V72.42 EXAMINATION OR TEST POSITIVE RESULT 01/14/2011 MALENA NWETON APRN V72.42 EXAMINATION OR TEST POSITIVE RESULT 01/14/2011 BENNETT DO, GREER K V72.42 EXAMINATION OR TEST POSITIVE RESULT 01/14/2011 BENNETT DO, GREER K V72.42 EXAMINATION OR TEST POSITIVE RESULT 01/14/2011 BENNETT DO, GREER K V72.42 EXAMINATION OR TEST POSITIVE RESULT 01/14/2011 MARYA ZAMAN APRN V72.42 EXAMINATION OR TEST POSITIVE RESULT 01/14/2011 BENNETT DO, GREER K V72.42 EXAMINATION OR TEST POSITIVE RESULT 01/14/2011 KAUR PALACIO APRN V72.42 EXAMINATION OR TEST POSITIVE RESULT 01/14/2011 MARYA ZAMAN APRN V72.42 EXAMINATION OR TEST POSITIVE RESULT 01/14/2011 BENNETT DO, GREER K V72.42 EXAMINATION OR TEST POSITIVE RESULT 01/14/2011 BENNETT DO, GREER K V72.42 EXAMINATION OR TEST POSITIVE RESULT 01/14/2011 BENNETT DO, GREER K V72.42 EXAMINATION OR TEST POSITIVE RESULT 01/14/2011 BENNETT DO, GREER K V72.42 EXAMINATION OR TEST POSITIVE RESULT 01/14/2011 YESENIA BARNHART DDS V72.42 EXAMINATION OR TEST POSITIVE RESULT 01/14/2011 BENNETT DO, GREER K V72.42 EXAMINATION OR TEST POSITIVE RESULT 01/14/2011 BENNETT DO, GREER K V72.42 EXAMINATION OR TEST POSITIVE RESULT 01/14/2011 BENNETT DO, GREER K V72.42 EXAMINATION OR TEST POSITIVE RESULT 01/14/2011 DANY SLAUGHTER APRN V72.42 EXAMINATION OR TEST POSITIVE RESULT 01/14/2011 V72.42 EXAMINATION OR TEST POSITIVE RESULT 04/21/2011 SHANNEN ROUSE MD 278.02 OVERWEIGHT 04/21/2011 SHANNEN ROUSE MD 599.0 URINARY TRACT INFECTION 04/21/2011 SHANNEN ROUSE MD 786.07 WHEEZING 04/21/2011 SHANNEN ROUSE MD 786.2 COUGH 04/21/2011 SHANNEN ROUSE MD V25.02 GENERAL COUNSELING ON INITIATION OF OTHER CONTRACEPTIVE MEASURES 04/21/2011 SHANNEN ROUSE MD V25.40 CONTRACEPTIVE SURVEILLANCE UNSPECIFIED 04/21/2011 278.02 OVERWEIGHT 04/21/2011 599.0 URINARY TRACT INFECTION 04/21/2011 786.07 WHEEZING 04/21/2011 786.2 COUGH 04/21/2011 V25.02 GENERAL COUNSELING ON INITIATION OF OTHER CONTRACEPTIVE MEASURES 04/21/2011 V25.40 CONTRACEPTIVE SURVEILLANCE UNSPECIFIED 04/21/2011 278.02 OVERWEIGHT 04/21/2011 599.0 URINARY TRACT INFECTION 04/21/2011 786.07 WHEEZING 04/21/2011 786.2 COUGH 04/21/2011 V25.02 GENERAL COUNSELING ON INITIATION OF OTHER CONTRACEPTIVE MEASURES 04/21/2011 V25.40 CONTRACEPTIVE SURVEILLANCE UNSPECIFIED 04/21/2011 278.02 OVERWEIGHT 04/21/2011 599.0 URINARY TRACT INFECTION 04/21/2011 786.07 WHEEZING 04/21/2011 786.2 COUGH 04/21/2011 V25.02 GENERAL COUNSELING ON INITIATION OF OTHER CONTRACEPTIVE MEASURES 04/21/2011 V25.40 CONTRACEPTIVE SURVEILLANCE UNSPECIFIED 04/21/2011 278.02 OVERWEIGHT 04/21/2011 599.0 URINARY TRACT INFECTION 04/21/2011 786.07 WHEEZING 04/21/2011 786.2 COUGH 04/21/2011 V25.02 GENERAL COUNSELING ON INITIATION OF OTHER CONTRACEPTIVE MEASURES 04/21/2011 V25.40 CONTRACEPTIVE SURVEILLANCE UNSPECIFIED 04/21/2011 278.02 OVERWEIGHT 04/21/2011 599.0 URINARY TRACT INFECTION 04/21/2011 786.07 WHEEZING 04/21/2011 786.2 COUGH 04/21/2011 V25.02 GENERAL COUNSELING ON INITIATION OF OTHER CONTRACEPTIVE MEASURES 04/21/2011 V25.40 CONTRACEPTIVE SURVEILLANCE UNSPECIFIED 04/21/2011 MALENA NEWTON APRN 278.02 OVERWEIGHT 04/21/2011 LAMAR SCRAP BUNCH MAKER, MALENA A 599.0 URINARY TRACT INFECTION 04/21/2011 LAMAR SCRAP BUNCH MAKER, MALENA A 786.07 WHEEZING 04/21/2011 LAMAR SCRAP BUNCH MAKER, MALENA A 786.2 COUGH 04/21/2011 LAMAR SCRAP BUNCH MAKER, MALENA A V25.02 GENERAL COUNSELING ON INITIATION OF OTHER CONTRACEPTIVE MEASURES 04/21/2011 LAMAR LYLEN, MALENA A V25.40 CONTRACEPTIVE SURVEILLANCE UNSPECIFIED 04/21/2011 BENNETT DO, GREER K 278.02 OVERWEIGHT 04/21/2011 BENNETT DO, GREER K 599.0 URINARY TRACT INFECTION 04/21/2011 BENNETT DO, GREER K 786.07 WHEEZING 04/21/2011 BENNETT DO, GREER K 786.2 COUGH 04/21/2011 BENNETT DO, GREER K V25.02 GENERAL COUNSELING ON INITIATION OF OTHER CONTRACEPTIVE MEASURES 04/21/2011 BENNETT DO, GREER K V25.40 CONTRACEPTIVE SURVEILLANCE UNSPECIFIED 04/21/2011 BENNETT DO, GREER K 278.02 OVERWEIGHT 04/21/2011 BENNETT DO, GREER K 599.0 URINARY TRACT INFECTION 04/21/2011 BENNETT DO, GREER K 786.07 WHEEZING 04/21/2011 BENNETT DO, GREER K 786.2 COUGH 04/21/2011 BENNETT DO, GREER K V25.02 GENERAL COUNSELING ON INITIATION OF OTHER CONTRACEPTIVE MEASURES 04/21/2011 BENNETT DO, GREER K V25.40 CONTRACEPTIVE SURVEILLANCE UNSPECIFIED 04/21/2011 BENNETT DO, GREER K 278.02 OVERWEIGHT 04/21/2011 BENNETT DO, GREER K 599.0 URINARY TRACT INFECTION 04/21/2011 BENNETT DO, GREER K 786.07 WHEEZING 04/21/2011 BENNETT DO, GREER K 786.2 COUGH 04/21/2011 BENNETT DO, GREER K V25.02 GENERAL COUNSELING ON INITIATION OF OTHER CONTRACEPTIVE MEASURES 04/21/2011 BENNETT DO, GREER K V25.40 CONTRACEPTIVE SURVEILLANCE UNSPECIFIED 04/21/2011 MARYA ZAMAN APRN 278.02 OVERWEIGHT 04/21/2011 ZAMAN MARYA MOORE R 599.0 URINARY TRACT INFECTION 04/21/2011 ZAMAN MARYA MOORE 786.07 WHEEZING 04/21/2011 ZAMAN MARYA MOORE 786.2 COUGH 04/21/2011 ZAMAN MARYA MOORE R V25.02 GENERAL COUNSELING ON INITIATION OF OTHER CONTRACEPTIVE MEASURES 04/21/2011 MARYA ZAMAN APRN V25.40 CONTRACEPTIVE SURVEILLANCE UNSPECIFIED 04/21/2011 BENNETT DO, GREER K 278.02 OVERWEIGHT 04/21/2011 BENNETT DO, GREER K 599.0 URINARY TRACT INFECTION 04/21/2011 BENNETT DO, GREER K 786.07 WHEEZING 04/21/2011 BENNETT DO, GREER K 786.2 COUGH 04/21/2011 BENNETT DO, GREER K V25.02 GENERAL COUNSELING ON INITIATION OF OTHER CONTRACEPTIVE MEASURES 04/21/2011 BENNETT DO, GREER K V25.40 CONTRACEPTIVE SURVEILLANCE UNSPECIFIED 04/21/2011 KLEVERLJASMYNE SCRAP BUNCH MAKERWILLIAM JiangE E 278.02 OVERWEIGHT 04/21/2011 KAUR PALACIO APRN E 599.0 URINARY TRACT INFECTION 04/21/2011 KLEVERLWILLIAM MEDLEY APRNE E 786.07 WHEEZING 04/21/2011 WILLIAM PALACIO APRNE E 786.2 COUGH 04/21/2011 WILLIAM PALACIO APRNE E V25.02 GENERAL COUNSELING ON INITIATION OF OTHER CONTRACEPTIVE MEASURES 04/21/2011 SMILEY PALACIO APRNSIE E V25.40 CONTRACEPTIVE SURVEILLANCE UNSPECIFIED 04/21/2011 MARYA ZAMAN APRN 278.02 OVERWEIGHT 04/21/2011 MARYA ZAMAN APRN 599.0 URINARY TRACT INFECTION 04/21/2011 MARYA ZAMAN APRN 786.07 WHEEZING 04/21/2011 MARYA ZAMAN APRN 786.2 COUGH 04/21/2011 MARYA ZAMAN APRN V25.02 GENERAL COUNSELING ON INITIATION OF OTHER CONTRACEPTIVE MEASURES 04/21/2011 MARYA ZAMAN APRN V25.40 CONTRACEPTIVE SURVEILLANCE UNSPECIFIED 04/21/2011 BENNETT DO, GREER K 278.02 OVERWEIGHT 04/21/2011 BENNETT DO, GREER K 599.0 URINARY TRACT INFECTION 04/21/2011 BENNETT DO, GREER K 786.07 WHEEZING 04/21/2011 BENNETT DO, GREER K 786.2 COUGH 04/21/2011 BENNETT DO, GREER K V25.02 GENERAL COUNSELING ON INITIATION OF OTHER CONTRACEPTIVE MEASURES 04/21/2011 BENNETT DO, GREER K V25.40 CONTRACEPTIVE SURVEILLANCE UNSPECIFIED 04/21/2011 BENNETT DO, GREER K 278.02 OVERWEIGHT 04/21/2011 BENNETT DO, GREER K 599.0 URINARY TRACT INFECTION 04/21/2011 BENNETT DO, GREER K 786.07 WHEEZING 04/21/2011 BENNETT DO, GREER K 786.2 COUGH 04/21/2011 BENNETT DO, GREER K V25.02 GENERAL COUNSELING ON INITIATION OF OTHER CONTRACEPTIVE MEASURES 04/21/2011 BENNETT DO, GREER K V25.40 CONTRACEPTIVE SURVEILLANCE UNSPECIFIED 04/21/2011 BENNETT DO, GREER K 278.02 OVERWEIGHT 04/21/2011 BENNETT DO, GREER K 599.0 URINARY TRACT INFECTION 04/21/2011 BENNETT DO, GREER K 786.07 WHEEZING 04/21/2011 BENNETT DO, GREER K 786.2 COUGH 04/21/2011 BENNETT DO, GREER K V25.02 GENERAL COUNSELING ON INITIATION OF OTHER CONTRACEPTIVE MEASURES 04/21/2011 BENNETT DO, GREER K V25.40 CONTRACEPTIVE SURVEILLANCE UNSPECIFIED 04/21/2011 BENNETT DO, GREER K 278.02 OVERWEIGHT 04/21/2011 BENNETT DO, GREER K 599.0 URINARY TRACT INFECTION 04/21/2011 BENNETT DO, GREER K 786.07 WHEEZING 04/21/2011 BENNETT DO, GREER K 786.2 COUGH 04/21/2011 BENNETT DO, GREER K V25.02 GENERAL COUNSELING ON INITIATION OF OTHER CONTRACEPTIVE MEASURES 04/21/2011 BENNETT DO, GREER K V25.40 CONTRACEPTIVE SURVEILLANCE UNSPECIFIED 04/21/2011 WHITE DDS, YESENIA D 278.02 OVERWEIGHT 04/21/2011 WHITE DDS, YESENIA D 599.0 URINARY TRACT INFECTION 04/21/2011 WHITE DDS, YESENIA D 786.07 WHEEZING 04/21/2011 WHITE DDS, YESENIA D 786.2 COUGH 04/21/2011 WHITE DDS, YESENIA D V25.02 GENERAL COUNSELING ON INITIATION OF OTHER CONTRACEPTIVE MEASURES 04/21/2011 WHITE DDS, YESENIA D V25.40 CONTRACEPTIVE SURVEILLANCE UNSPECIFIED 04/21/2011 BENNETT DO, GREER K 278.02 OVERWEIGHT 04/21/2011 BENNETT DO, GREER K 599.0 URINARY TRACT INFECTION 04/21/2011 BENNETT DO, GREER K 786.07 WHEEZING 04/21/2011 BNENETT DO, GREER K 786.2 COUGH 04/21/2011 BENNETT DO, GREER K V25.02 GENERAL COUNSELING ON INITIATION OF OTHER CONTRACEPTIVE MEASURES 04/21/2011 BENNETT DO, GREER K V25.40 CONTRACEPTIVE SURVEILLANCE UNSPECIFIED 04/21/2011 BENNETT DO, GREER K 278.02 OVERWEIGHT 04/21/2011 BENNETT DO, GREER K 599.0 URINARY TRACT INFECTION 04/21/2011 BENNETT DO, GREER K 786.07 WHEEZING 04/21/2011 BENNETT DO, GREER K 786.2 COUGH 04/21/2011 BENNETT DO, GREER K V25.02 GENERAL COUNSELING ON INITIATION OF OTHER CONTRACEPTIVE MEASURES 04/21/2011 BENNETT DO, GREER K V25.40 CONTRACEPTIVE SURVEILLANCE UNSPECIFIED 04/21/2011 BENNETT DO, GREER K 278.02 OVERWEIGHT 04/21/2011 BENNETT DO, GREER K 599.0 URINARY TRACT INFECTION 04/21/2011 BENNETT DO, GREER K 786.07 WHEEZING 04/21/2011 BENNETT DO, GREER K 786.2 COUGH 04/21/2011 BENNETT DO, GREER K V25.02 GENERAL COUNSELING ON INITIATION OF OTHER CONTRACEPTIVE MEASURES 04/21/2011 BENNETT DO, GREER K V25.40 CONTRACEPTIVE SURVEILLANCE UNSPECIFIED 04/21/2011 DANY SLAUGHTER APRN 278.02 OVERWEIGHT 04/21/2011 DANY SLAUGHTER APRN 599.0 URINARY TRACT INFECTION 04/21/2011 DANY SLAUGHTER APRN 786.07 WHEEZING 04/21/2011 DANY SLAUGHTER APRN 786.2 COUGH 04/21/2011 DANY SLAUGHTER APRN V25.02 GENERAL COUNSELING ON INITIATION OF OTHER CONTRACEPTIVE MEASURES 04/21/2011 DANY SLAUGHTER APRN V25.40 CONTRACEPTIVE SURVEILLANCE UNSPECIFIED 04/21/2011 278.02 OVERWEIGHT 04/21/2011 599.0 URINARY TRACT INFECTION 04/21/2011 786.07 WHEEZING 04/21/2011 786.2 COUGH 04/21/2011 V25.02 GENERAL COUNSELING ON INITIATION OF OTHER CONTRACEPTIVE MEASURES 04/21/2011 V25.40 CONTRACEPTIVE SURVEILLANCE UNSPECIFIED 05/02/2011 SHANNEN ROUSE MD 311 DEPRESSION 05/02/2011 311 DEPRESSION 05/02/2011 311 DEPRESSION 05/02/2011 311 DEPRESSION 05/02/2011 311 DEPRESSION 05/02/2011 311 DEPRESSION 05/02/2011 MALENA NEWTON APRN 311 DEPRESSION 05/02/2011 BENNETT DO GREER K 311 DEPRESSION 05/02/2011 BENNETT DO, GREER K 311 DEPRESSION 05/02/2011 BENNETT DO, GREER K 311 DEPRESSION 05/02/2011 MARYA ZAMAN APRN R 311 DEPRESSION 05/02/2011 BENNETT DO, GREER K 311 DEPRESSION 05/02/2011 KAUR PALACIO APRN 311 DEPRESSION 05/02/2011 MARYA ZAMAN APRN R 311 DEPRESSION 05/02/2011 BENNETT DO, GREER K 311 DEPRESSION 05/02/2011 BENNETT DO, GREER K 311 DEPRESSION 05/02/2011 BENNETT DO, GREER K 311 DEPRESSION 05/02/2011 BENNETT DO, GREER K 311 DEPRESSION 05/02/2011 WHITE DDS, YESENIA D 311 DEPRESSION 05/02/2011 BENNETT DO, GREER K 311 DEPRESSION 05/02/2011 BENNETT DO, GREER K 311 DEPRESSION 05/02/2011 BENNETT DO, GREER K 311 DEPRESSION 05/02/2011 DANY SLAUGHTER APRN 311 DEPRESSION 05/02/2011 311 DEPRESSION 06/27/2011 SHANNEN ROUSE MD V69.2 HIGH-RISK SEXUAL BEHAVIOR 06/27/2011 V69.2 HIGH-RISK SEXUAL BEHAVIOR 06/27/2011 V69.2 HIGH-RISK SEXUAL BEHAVIOR 06/27/2011 V69.2 HIGH-RISK SEXUAL BEHAVIOR 06/27/2011 V69.2 HIGH-RISK SEXUAL BEHAVIOR 06/27/2011 V69.2 HIGH-RISK SEXUAL BEHAVIOR 06/27/2011 MALENA NEWTON APRN V69.2 HIGH-RISK SEXUAL BEHAVIOR 06/27/2011 BENNETT DO, GREER K V69.2 HIGH-RISK SEXUAL BEHAVIOR 06/27/2011 BENNETT DO, GREER K V69.2 HIGH-RISK SEXUAL BEHAVIOR 06/27/2011 BENNETT DO, GREER K V69.2 HIGH-RISK SEXUAL BEHAVIOR 06/27/2011 MARYA ZAMAN APRN V69.2 HIGH-RISK SEXUAL BEHAVIOR 06/27/2011 BENNETT DO, GREER K V69.2 HIGH-RISK SEXUAL BEHAVIOR 06/27/2011 KAUR PALACIO APRN V69.2 HIGH-RISK SEXUAL BEHAVIOR 06/27/2011 MARYA ZAMAN APRN V69.2 HIGH-RISK SEXUAL BEHAVIOR 06/27/2011 BENNETT DO, GREER K V69.2 HIGH-RISK SEXUAL BEHAVIOR 06/27/2011 BENNETT DO, GREER K V69.2 HIGH-RISK SEXUAL BEHAVIOR 06/27/2011 BENNETT DO, GREER K V69.2 HIGH-RISK SEXUAL BEHAVIOR 06/27/2011 BENNETT DO, GREER K V69.2 HIGH-RISK SEXUAL BEHAVIOR 06/27/2011 YESENIA BARNHART DDS V69.2 HIGH-RISK SEXUAL BEHAVIOR 06/27/2011 BENNETT DO, GREER K V69.2 HIGH-RISK SEXUAL BEHAVIOR 06/27/2011 BENNETT DO, GREER K V69.2 HIGH-RISK SEXUAL BEHAVIOR 06/27/2011 BENNETT DO, GREER K V69.2 HIGH-RISK SEXUAL BEHAVIOR 06/27/2011 DANY SLAUGHTER APRN V69.2 HIGH-RISK SEXUAL BEHAVIOR 06/27/2011 V69.2 HIGH-RISK SEXUAL BEHAVIOR 07/10/2011 PADMA KOROMA, SHANNEN V72.31 RIVERBOAT MASTER EXAM, ROUTINE 07/10/2011 V72.31 RIVERBOAT MASTER EXAM, ROUTINE 07/10/2011 V72.31 RIVERBOAT MASTER EXAM, ROUTINE 07/10/2011 V72.31 RIVERBOAT MASTER EXAM, ROUTINE 07/10/2011 V72.31 RIVERBOAT MASTER EXAM, ROUTINE 07/10/2011 V72.31 RIVERBOAT MASTER EXAM, ROUTINE 07/10/2011 MALENA NEWTON APRN V72.31 RIVERBOAT MASTER EXAM, ROUTINE 07/10/2011 BENNETT DO, RGEER K V72.31 RIVERBOAT MASTER EXAM, ROUTINE 07/10/2011 BENNETT DO, GREER K V72.31 RIVERBOAT MASTER EXAM, ROUTINE 07/10/2011 BENNETT DO, GREER K V72.31 RIVERBOAT MASTER EXAM, ROUTINE 07/10/2011 MARYA ZAMAN APRN V72.31 RIVERBOAT MASTER EXAM, ROUTINE 07/10/2011 BENNETT DO, GREER K V72.31 RIVERBOAT MASTER EXAM, ROUTINE 07/10/2011 KAUR PALACIO APRN V72.31 RIVERBOAT MASTER EXAM, ROUTINE 07/10/2011 MARYA ZAMAN APRN V72.31 RIVERBOAT MASTER EXAM, ROUTINE 07/10/2011 BENNETT DO, GREER K V72.31 RIVERBOAT MASTER EXAM, ROUTINE 07/10/2011 BENNETT DO, GREER K V72.31 RIVERBOAT MASTER EXAM, ROUTINE 07/10/2011 BENNETT DO, GREER K V72.31 RIVERBOAT MASTER EXAM, ROUTINE 07/10/2011 BENNETT DO, GREER K V72.31 RIVERBOAT MASTER EXAM, ROUTINE 07/10/2011 YESENIA BARNHART DDS V72.31 RIVERBOAT MASTER EXAM, ROUTINE 07/10/2011 BENNETT DO, GREER K V72.31 RIVERBOAT MASTER EXAM, ROUTINE 07/10/2011 BENNETT DO, GREER K V72.31 RIVERBOAT MASTER EXAM, ROUTINE 07/10/2011 BENNETT DO, GREER K V72.31 RIVERBOAT MASTER EXAM, ROUTINE 07/10/2011 DANY SLAUGHTER APRN V72.31 RIVERBOAT MASTER EXAM, ROUTINE 07/10/2011 V72.31 RIVERBOAT MASTER EXAM, ROUTINE 08/14/2011 SHANNEN ROUSE MD 784.0 HEADACHE 08/14/2011 784.0 HEADACHE 08/14/2011 784.0 HEADACHE 08/14/2011 784.0 HEADACHE 08/14/2011 784.0 HEADACHE 08/14/2011 784.0 HEADACHE 08/14/2011 MALENA NEWTON APRN 784.0 HEADACHE 08/14/2011 BENNETT DO, GREER K 784.0 HEADACHE 08/14/2011 BENNETT DO, GREER K 784.0 HEADACHE 08/14/2011 BENNETT DO, GREER K 784.0 HEADACHE 08/14/2011 MARYA ZAMAN APRN 784.0 HEADACHE 08/14/2011 BENNETT DO, GREER K 784.0 HEADACHE 08/14/2011 KAUR PALACIO APRN 784.0 HEADACHE 08/14/2011 MARYA ZAMAN APRN 784.0 HEADACHE 08/14/2011 BENNETT DO, GREER K 784.0 HEADACHE 08/14/2011 BENNETT DO, GREER K 784.0 HEADACHE 08/14/2011 BENNETT DO, GREER K 784.0 HEADACHE 08/14/2011 BENNETT DO, GREER K 784.0 HEADACHE 08/14/2011 YESENIA BARNHART DDS 784.0 HEADACHE 08/14/2011 BENNETT DO, GREER K 784.0 HEADACHE 08/14/2011 BENNETT DO, GREER K 784.0 HEADACHE 08/14/2011 BENNETT DO, GREER K 784.0 HEADACHE 08/14/2011 DANY SLAUGHTER APRN 784.0 HEADACHE 08/14/2011 784.0 HEADACHE 09/01/2011 SHANNEN ROUSE MD 461.9 SINUSITIS ACUTE 09/01/2011 SHANNEN ROUSE MD 788.1 pain during urination (dysuria) 09/01/2011 461.9 SINUSITIS ACUTE 09/01/2011 788.1 pain during urination (dysuria) 09/01/2011 461.9 SINUSITIS ACUTE 09/01/2011 788.1 pain during urination (dysuria) 09/01/2011 461.9 SINUSITIS ACUTE 09/01/2011 788.1 pain during urination (dysuria) 09/01/2011 461.9 SINUSITIS ACUTE 09/01/2011 788.1 pain during urination (dysuria) 09/01/2011 461.9 SINUSITIS ACUTE 09/01/2011 788.1 pain during urination (dysuria) 09/01/2011 LAMARSEFERINO HILL APRNIDI A 461.9 SINUSITIS ACUTE 09/01/2011 [place] APRNIDI A 788.1 pain during urination (dysuria) 09/01/2011 SMILEY BENNETT DOA K 461.9 SINUSITIS ACUTE 09/01/2011 SMILEY BENNETT DOA K 788.1 pain during urination (dysuria) 09/01/2011 SMILEY BENNETT DOA K 461.9 SINUSITIS ACUTE 09/01/2011 SABRINA RHODES GREER K 788.1 pain during urination (dysuria) 09/01/2011 SMILEY BENNETT DOA K 461.9 SINUSITIS ACUTE 09/01/2011 SABRINA RHODES GREER K 788.1 pain during urination (dysuria) 09/01/2011 MARYA ZAMAN APRN 461.9 SINUSITIS ACUTE 09/01/2011 MARYA ZAMAN APRN 788.1 pain during urination (dysuria) 09/01/2011 SMILEY BENNETT DOA K 461.9 SINUSITIS ACUTE 09/01/2011 SABRINA RHODES GREER K 788.1 pain during urination (dysuria) 09/01/2011 KAUR PALACIO APRN 461.9 SINUSITIS ACUTE 09/01/2011 KAUR PALACIO APRN 788.1 pain during urination (dysuria) 09/01/2011 MARYA ZAMAN APRN 461.9 SINUSITIS ACUTE 09/01/2011 MARYA ZAMAN APRN 788.1 pain during urination (dysuria) 09/01/2011 GREER BENNETT DO K 461.9 SINUSITIS ACUTE 09/01/2011 BENNETT DO, GREER K 788.1 pain during urination (dysuria) 09/01/2011 BENNETT DO, GREER K 461.9 SINUSITIS ACUTE 09/01/2011 BENNETT DO, GREER K 788.1 pain during urination (dysuria) 09/01/2011 BENNETT DO, GREER K 461.9 SINUSITIS ACUTE 09/01/2011 BENNETT DO, GREER K 788.1 pain during urination (dysuria) 09/01/2011 BENNETT DO, GREER K 461.9 SINUSITIS ACUTE 09/01/2011 BENNETT DO, GREER K 788.1 pain during urination (dysuria) 09/01/2011 WHITE DDS, YESENIA D 461.9 SINUSITIS ACUTE 09/01/2011 WHITE DDS, YESENIA D 788.1 pain during urination (dysuria) 09/01/2011 BENNETT DO, GREER K 461.9 SINUSITIS ACUTE 09/01/2011 BENNETT DO, GREER K 788.1 pain during urination (dysuria) 09/01/2011 BENNETT DO, GREER K 461.9 SINUSITIS ACUTE 09/01/2011 BENNETT DO, GREER K 788.1 pain during urination (dysuria) 09/01/2011 BENNETT DO, GREER K 461.9 SINUSITIS ACUTE 09/01/2011 BENNETT DO, GREER K 788.1 pain during urination (dysuria) 09/01/2011 DANY SLAUGHTER APRN 461.9 SINUSITIS ACUTE 09/01/2011 DANY SLAUGHTER APRN 788.1 pain during urination (dysuria) 09/01/2011 461.9 SINUSITIS ACUTE 09/01/2011 788.1 pain during urination (dysuria) 11/03/2011 SHANNEN ROUSE MD 296.90 EPISODIC MOOD DISORDERS 11/03/2011 296.90 EPISODIC MOOD DISORDERS 11/03/2011 296.90 EPISODIC MOOD DISORDERS 11/03/2011 296.90 EPISODIC MOOD DISORDERS 11/03/2011 296.90 EPISODIC MOOD DISORDERS 11/03/2011 296.90 EPISODIC MOOD DISORDERS 11/03/2011 MALENA NEWTON APRN 296.90 EPISODIC MOOD DISORDERS 11/03/2011 BENNETT DO GREER K 296.90 EPISODIC MOOD DISORDERS 11/03/2011 BENNETT DO, GREER K 296.90 EPISODIC MOOD DISORDERS 11/03/2011 BENNETT DO, GREER K 296.90 EPISODIC MOOD DISORDERS 11/03/2011 MARYA ZAMAN APRN 296.90 EPISODIC MOOD DISORDERS 11/03/2011 BENNETT DO, GREER K 296.90 EPISODIC MOOD DISORDERS 11/03/2011 KAUR PALACIO APRN 296.90 EPISODIC MOOD DISORDERS 11/03/2011 MARYA ZAMAN APRN 296.90 EPISODIC MOOD DISORDERS 11/03/2011 BENNETT DO, GREER K 296.90 EPISODIC MOOD DISORDERS 11/03/2011 BENNETT DO, GREER K 296.90 EPISODIC MOOD DISORDERS 11/03/2011 BENNETT DO, GREER K 296.90 EPISODIC MOOD DISORDERS 11/03/2011 BENNETT DO, GREER K 296.90 EPISODIC MOOD DISORDERS 11/03/2011 YESENIA BARNHART DDS 296.90 EPISODIC MOOD DISORDERS 11/03/2011 BENNETT DO, GREER K 296.90 EPISODIC MOOD DISORDERS 11/03/2011 BENNETT DO, GREER K 296.90 EPISODIC MOOD DISORDERS 11/03/2011 BENNETT DO, GREER K 296.90 EPISODIC MOOD DISORDERS 11/03/2011 DANY SLAUGHTER APRN 296.90 EPISODIC MOOD DISORDERS 11/03/2011 296.90 EPISODIC MOOD DISORDERS 12/03/2011 PADMA KOROMA, SHANNEN 522.5 PERIAPICAL ABSCESS WITHOUT SINUS 12/03/2011 522.5 PERIAPICAL ABSCESS WITHOUT SINUS 12/03/2011 522.5 PERIAPICAL ABSCESS WITHOUT SINUS 12/03/2011 522.5 PERIAPICAL ABSCESS WITHOUT SINUS 12/03/2011 522.5 PERIAPICAL ABSCESS WITHOUT SINUS 12/03/2011 522.5 PERIAPICAL ABSCESS WITHOUT SINUS 12/03/2011 MALENA NEWTON APRN 522.5 PERIAPICAL ABSCESS WITHOUT SINUS 12/03/2011 BENNETT DO, GREER K 522.5 PERIAPICAL ABSCESS WITHOUT SINUS 12/03/2011 BENNETT DO, GREER K 522.5 PERIAPICAL ABSCESS WITHOUT SINUS 12/03/2011 BENNETT DO, GREER K 522.5 PERIAPICAL ABSCESS WITHOUT SINUS 12/03/2011 MARYA ZAMAN APRN 522.5 PERIAPICAL ABSCESS WITHOUT SINUS 12/03/2011 BENNETT DO, GREER K 522.5 PERIAPICAL ABSCESS WITHOUT SINUS 12/03/2011 KAUR PALACIO APRN 522.5 PERIAPICAL ABSCESS WITHOUT SINUS 12/03/2011 MARYA ZAMAN APRN 522.5 PERIAPICAL ABSCESS WITHOUT SINUS 12/03/2011 BENNETT DO, GREER K 522.5 PERIAPICAL ABSCESS WITHOUT SINUS 12/03/2011 BENNETT DO, GREER K 522.5 PERIAPICAL ABSCESS WITHOUT SINUS 12/03/2011 BENNETT DO, GREER K 522.5 PERIAPICAL ABSCESS WITHOUT SINUS 12/03/2011 BENNETT DO, GREER K 522.5 PERIAPICAL ABSCESS WITHOUT SINUS 12/03/2011 YESENIA BARNHART DDS 522.5 PERIAPICAL ABSCESS WITHOUT SINUS 12/03/2011 BENNETT DO, GREER K 522.5 PERIAPICAL ABSCESS WITHOUT SINUS 12/03/2011 BENNETT DO, GREER K 522.5 PERIAPICAL ABSCESS WITHOUT SINUS 12/03/2011 BENNETT DO, GREER K 522.5 PERIAPICAL ABSCESS WITHOUT SINUS 12/03/2011 DANY SLAUGHTER APRN 522.5 PERIAPICAL ABSCESS WITHOUT SINUS 12/03/2011 522.5 PERIAPICAL ABSCESS WITHOUT SINUS 12/26/2011 PADMA KOROMA, SHANNEN 112.1 CANDIDIASIS VAGINAL 12/26/2011 112.1 CANDIDIASIS VAGINAL 12/26/2011 112.1 CANDIDIASIS VAGINAL 12/26/2011 112.1 CANDIDIASIS VAGINAL 12/26/2011 112.1 CANDIDIASIS VAGINAL 12/26/2011 112.1 CANDIDIASIS VAGINAL 12/26/2011 MALENA NEWTON APRN 112.1 CANDIDIASIS VAGINAL 12/26/2011 BENNETT DO GREER K 112.1 CANDIDIASIS VAGINAL 12/26/2011 BENNETT DO GREER K 112.1 CANDIDIASIS VAGINAL 12/26/2011 BENNETT DO GREER K 112.1 CANDIDIASIS VAGINAL 12/26/2011 MARYA ZAMAN APRN 112.1 CANDIDIASIS VAGINAL 12/26/2011 BENNETT DO GREER K 112.1 CANDIDIASIS VAGINAL 12/26/2011 KAUR PALACIO APRN 112.1 CANDIDIASIS VAGINAL 12/26/2011 MARYA ZAMAN APRN 112.1 CANDIDIASIS VAGINAL 12/26/2011 BENNETT , GREER K 112.1 CANDIDIASIS VAGINAL 12/26/2011 BENNETT , GREER K 112.1 CANDIDIASIS VAGINAL 12/26/2011 BENNETT , GREER K 112.1 CANDIDIASIS VAGINAL 12/26/2011 BENNETT DO GREER K 112.1 CANDIDIASIS VAGINAL 12/26/2011 YESENIA BARNHART DDS D 112.1 CANDIDIASIS VAGINAL 12/26/2011 BENNETT DO, GREER K 112.1 CANDIDIASIS VAGINAL 12/26/2011 BENNETT DO, GREER K 112.1 CANDIDIASIS VAGINAL 12/26/2011 BENNETT DO, GREER K 112.1 CANDIDIASIS VAGINAL 12/26/2011 DANY SLAUGHTER APRN 112.1 CANDIDIASIS VAGINAL 12/26/2011 112.1 CANDIDIASIS VAGINAL 02/09/2012 SHANNEN ROUSE MD 477.9 RHINITIS 02/09/2012 477.9 RHINITIS 02/09/2012 477.9 RHINITIS 02/09/2012 477.9 RHINITIS 02/09/2012 477.9 RHINITIS 02/09/2012 477.9 RHINITIS 02/09/2012 MALENA NEWTON APRN 477.9 RHINITIS 02/09/2012 BENNETT DO, GREER K 477.9 RHINITIS 02/09/2012 BENNETT DO, GREER K 477.9 RHINITIS 02/09/2012 BENNETT DO, GREER K 477.9 RHINITIS 02/09/2012 MARYA ZAMAN APRN 477.9 RHINITIS 02/09/2012 BENNETT DO, GREER K 477.9 RHINITIS 02/09/2012 KAUR PALACIO APRN 477.9 RHINITIS 02/09/2012 MARYA ZAMAN APRN 477.9 RHINITIS 02/09/2012 BENNETT DO, GREER K 477.9 RHINITIS 02/09/2012 BENNETT DO, GREER K 477.9 RHINITIS 02/09/2012 BENNETT DO, GREER K 477.9 RHINITIS 02/09/2012 BENNETT DO, GREER K 477.9 RHINITIS 02/09/2012 OBEY BERRIOSS, YESENIA Fay 477.9 RHINITIS 02/09/2012 BENNETT DO, GREER K 477.9 RHINITIS 02/09/2012 BENNETT DO, GREER K 477.9 RHINITIS 02/09/2012 BENNETT DO, GREER K 477.9 RHINITIS 02/09/2012 DANY SLAUGHTER APRN 477.9 RHINITIS 02/09/2012 477.9 RHINITIS 02/13/2012 PADMA KOROMA, SHANNEN 703.0 INGROWN TOENAIL (infection) 02/13/2012 703.0 INGROWN TOENAIL (infection) 02/13/2012 703.0 INGROWN TOENAIL (infection) 02/13/2012 703.0 INGROWN TOENAIL (infection) 02/13/2012 703.0 INGROWN TOENAIL (infection) 02/13/2012 703.0 INGROWN TOENAIL (infection) 02/13/2012 MALENA NEWTON APRN 703.0 INGROWN TOENAIL (infection) 02/13/2012 BENNETT DO, GREER K 703.0 INGROWN TOENAIL (infection) 02/13/2012 BENNETT DO, GREER K 703.0 INGROWN TOENAIL (infection) 02/13/2012 BENNETT DO, GREER K 703.0 INGROWN TOENAIL (infection) 02/13/2012 MARYA ZAMAN APRN 703.0 INGROWN TOENAIL (infection) 02/13/2012 BENNETT DO, GREER K 703.0 INGROWN TOENAIL (infection) 02/13/2012 KAUR PALACIO APRN 703.0 INGROWN TOENAIL (infection) 02/13/2012 MARYA ZAMAN APRN 703.0 INGROWN TOENAIL (infection) 02/13/2012 BENNETT DO, GREER K 703.0 INGROWN TOENAIL (infection) 02/13/2012 BENNETT DO, GREER K 703.0 INGROWN TOENAIL (infection) 02/13/2012 BENNETT DO, GREER K 703.0 INGROWN TOENAIL (infection) 02/13/2012 BENNETT DO, GREER K 703.0 INGROWN TOENAIL (infection) 02/13/2012 YESENIA BARNHART DDS 703.0 INGROWN TOENAIL (infection) 02/13/2012 BENNETT DO, GREER K 703.0 INGROWN TOENAIL (infection) 02/13/2012 BENNETT DO, GREER K 703.0 INGROWN TOENAIL (infection) 02/13/2012 BENNETT DO, GREER K 703.0 INGROWN TOENAIL (infection) 02/13/2012 DANY SLAUGHTER APRN 703.0 INGROWN TOENAIL (infection) 02/13/2012 703.0 INGROWN TOENAIL (infection) 03/08/2012 PADMA KOROMA, SHANNEN 682.6 CELLULITIS AND ABSCESS OF LEG EXCEPT FOOT 03/08/2012 682.6 CELLULITIS AND ABSCESS OF LEG EXCEPT FOOT 03/08/2012 682.6 CELLULITIS AND ABSCESS OF LEG EXCEPT FOOT 03/08/2012 682.6 CELLULITIS AND ABSCESS OF LEG EXCEPT FOOT 03/08/2012 682.6 CELLULITIS AND ABSCESS OF LEG EXCEPT FOOT 03/08/2012 682.6 CELLULITIS AND ABSCESS OF LEG EXCEPT FOOT 03/08/2012 MALENA NEWTON APRN 682.6 CELLULITIS AND ABSCESS OF LEG EXCEPT FOOT 03/08/2012 BENNETT DO, GREER K 682.6 CELLULITIS AND ABSCESS OF LEG EXCEPT FOOT 03/08/2012 BENNETT DO, GREER K 682.6 CELLULITIS AND ABSCESS OF LEG EXCEPT FOOT 03/08/2012 BENNETT DO, GREER K 682.6 CELLULITIS AND ABSCESS OF LEG EXCEPT FOOT 03/08/2012 MARYA ZAMAN APRN 682.6 CELLULITIS AND ABSCESS OF LEG EXCEPT FOOT 03/08/2012 BENNETT DO, GREER K 682.6 CELLULITIS AND ABSCESS OF LEG EXCEPT FOOT 03/08/2012 KAUR PALACIO APRN 682.6 CELLULITIS AND ABSCESS OF LEG EXCEPT FOOT 03/08/2012 MARYA ZAMAN APRN 682.6 CELLULITIS AND ABSCESS OF LEG EXCEPT FOOT 03/08/2012 BENNETT DO, GREER K 682.6 CELLULITIS AND ABSCESS OF LEG EXCEPT FOOT 03/08/2012 BENNETT DO, GREER K 682.6 CELLULITIS AND ABSCESS OF LEG EXCEPT FOOT 03/08/2012 BENNETT DO, GREER K 682.6 CELLULITIS AND ABSCESS OF LEG EXCEPT FOOT 03/08/2012 BENNETT DO, GREER K 682.6 CELLULITIS AND ABSCESS OF LEG EXCEPT FOOT 03/08/2012 YESENIA BARNHART DDS 682.6 CELLULITIS AND ABSCESS OF LEG EXCEPT FOOT 03/08/2012 BENNETT DO, GREER K 682.6 CELLULITIS AND ABSCESS OF LEG EXCEPT FOOT 03/08/2012 BENNETT DO, GREER K 682.6 CELLULITIS AND ABSCESS OF LEG EXCEPT FOOT 03/08/2012 BENNETT DO, GREER K 682.6 CELLULITIS AND ABSCESS OF LEG EXCEPT FOOT 03/08/2012 DANY SLAUGHTER APRN 682.6 CELLULITIS AND ABSCESS OF LEG EXCEPT FOOT 03/08/2012 682.6 CELLULITIS AND ABSCESS OF LEG EXCEPT FOOT 04/01/2012 SHANNEN ROUSE MD V25.01 CONTRACEPTION - ORAL CONTRACEPTION 04/01/2012 V25.01 CONTRACEPTION - ORAL CONTRACEPTION 04/01/2012 V25.01 CONTRACEPTION - ORAL CONTRACEPTION 04/01/2012 V25.01 CONTRACEPTION - ORAL CONTRACEPTION 04/01/2012 V25.01 CONTRACEPTION - ORAL CONTRACEPTION 04/01/2012 V25.01 CONTRACEPTION - ORAL CONTRACEPTION 04/01/2012 MALENA NEWTON APRN V25.01 CONTRACEPTION - ORAL CONTRACEPTION 04/01/2012 BENNETT DO, GREER K V25.01 CONTRACEPTION - ORAL CONTRACEPTION 04/01/2012 BENNETT DO, GREER K V25.01 CONTRACEPTION - ORAL CONTRACEPTION 04/01/2012 BENNETT DO, GREER K V25.01 CONTRACEPTION - ORAL CONTRACEPTION 04/01/2012 MARYA ZAMAN APRN V25.01 CONTRACEPTION - ORAL CONTRACEPTION 04/01/2012 BENNETT DO, GREER K V25.01 CONTRACEPTION - ORAL CONTRACEPTION 04/01/2012 KAUR PALACIO APRN V25.01 CONTRACEPTION - ORAL CONTRACEPTION 04/01/2012 MARYA ZAMAN APRN V25.01 CONTRACEPTION - ORAL CONTRACEPTION 04/01/2012 BENNETT DO, GREER K V25.01 CONTRACEPTION - ORAL CONTRACEPTION 04/01/2012 BENNETT DO, GREER K V25.01 CONTRACEPTION - ORAL CONTRACEPTION 04/01/2012 BENNETT DO, GREER K V25.01 CONTRACEPTION - ORAL CONTRACEPTION 04/01/2012 BENNETT DO, GREER K V25.01 CONTRACEPTION - ORAL CONTRACEPTION 04/01/2012 OBEY BERRIOSSYESENIA V25.01 CONTRACEPTION - ORAL CONTRACEPTION 04/01/2012 BENNETT DO, GREER K V25.01 CONTRACEPTION - ORAL CONTRACEPTION 04/01/2012 BENNETT DO, GREER K V25.01 CONTRACEPTION - ORAL CONTRACEPTION 04/01/2012 BENNETT DO, GREER K V25.01 CONTRACEPTION - ORAL CONTRACEPTION 04/01/2012 DANY SLAUGHTER APRN V25.01 CONTRACEPTION - ORAL CONTRACEPTION 04/01/2012 V25.01 CONTRACEPTION - ORAL CONTRACEPTION 04/13/2012 SHANNEN ROUSE MD 380.10 OTITIS EXTERNA - RIGHT EAR 04/13/2012 SHANNEN ROUSE MD 381.00 OTITIS MEDIA ACUTE NONSUPPURATIVE RIGHT EAR 04/13/2012 380.10 OTITIS EXTERNA - RIGHT EAR 04/13/2012 381.00 OTITIS MEDIA ACUTE NONSUPPURATIVE RIGHT EAR 04/13/2012 380.10 OTITIS EXTERNA - RIGHT EAR 04/13/2012 381.00 OTITIS MEDIA ACUTE NONSUPPURATIVE RIGHT EAR 04/13/2012 380.10 OTITIS EXTERNA - RIGHT EAR 04/13/2012 381.00 OTITIS MEDIA ACUTE NONSUPPURATIVE RIGHT EAR 04/13/2012 380.10 OTITIS EXTERNA - RIGHT EAR 04/13/2012 381.00 OTITIS MEDIA ACUTE NONSUPPURATIVE RIGHT EAR 04/13/2012 380.10 OTITIS EXTERNA - RIGHT EAR 04/13/2012 381.00 OTITIS MEDIA ACUTE NONSUPPURATIVE RIGHT EAR 04/13/2012 MALENA NEWTON APRN A 380.10 OTITIS EXTERNA - RIGHT EAR 04/13/2012 MALENA NEWTON APRN A 381.00 OTITIS MEDIA ACUTE NONSUPPURATIVE RIGHT EAR 04/13/2012 BENNETT SMILEY RHODESA K 380.10 OTITIS EXTERNA - RIGHT EAR 04/13/2012 SMILEY BENNETT DOA K 381.00 OTITIS MEDIA ACUTE NONSUPPURATIVE RIGHT EAR 04/13/2012 SMILEY BENNETT DOA K 380.10 OTITIS EXTERNA - RIGHT EAR 04/13/2012 BENNETT DOSMILEYA K 381.00 OTITIS MEDIA ACUTE NONSUPPURATIVE RIGHT EAR 04/13/2012 SMILEY BENNETT DOA K 380.10 OTITIS EXTERNA - RIGHT EAR 04/13/2012 SMILEY BENNETT DOA K 381.00 OTITIS MEDIA ACUTE NONSUPPURATIVE RIGHT EAR 04/13/2012 MARYA ZAMAN APRN 380.10 OTITIS EXTERNA - RIGHT EAR 04/13/2012 MARYA ZAMAN APRN 381.00 OTITIS MEDIA ACUTE NONSUPPURATIVE RIGHT EAR 04/13/2012 GREER BENNETT DO K 380.10 OTITIS EXTERNA - RIGHT EAR 04/13/2012 SMILEY BENNETT DOA K 381.00 OTITIS MEDIA ACUTE NONSUPPURATIVE RIGHT EAR 04/13/2012 KAUR PALACIO APRN 380.10 OTITIS EXTERNA - RIGHT EAR 04/13/2012 KAUR PALACIO APRN 381.00 OTITIS MEDIA ACUTE NONSUPPURATIVE RIGHT EAR 04/13/2012 MARYA ZAMAN APRN 380.10 OTITIS EXTERNA - RIGHT EAR 04/13/2012 MARYA ZAMAN APRN 381.00 OTITIS MEDIA ACUTE NONSUPPURATIVE RIGHT EAR 04/13/2012 BENNETT DO, GREER K 380.10 OTITIS EXTERNA - RIGHT EAR 04/13/2012 BENNETT DO, GREER K 381.00 OTITIS MEDIA ACUTE NONSUPPURATIVE RIGHT EAR 04/13/2012 BENNETT DO, GREER K 380.10 OTITIS EXTERNA - RIGHT EAR 04/13/2012 BENNETT DO, GREER K 381.00 OTITIS MEDIA ACUTE NONSUPPURATIVE RIGHT EAR 04/13/2012 BENNETT DO, GREER K 380.10 OTITIS EXTERNA - RIGHT EAR 04/13/2012 BENNETT DO, GREER K 381.00 OTITIS MEDIA ACUTE NONSUPPURATIVE RIGHT EAR 04/13/2012 BNENETT DO, GREER K 380.10 OTITIS EXTERNA - RIGHT EAR 04/13/2012 BENNETT DO, GREER K 381.00 OTITIS MEDIA ACUTE NONSUPPURATIVE RIGHT EAR 04/13/2012 WHITE DDS, YESENIA D 380.10 OTITIS EXTERNA - RIGHT EAR 04/13/2012 WHITE DDS, YESENIA D 381.00 OTITIS MEDIA ACUTE NONSUPPURATIVE RIGHT EAR 04/13/2012 BENNETT DO, GREER K 380.10 OTITIS EXTERNA - RIGHT EAR 04/13/2012 BENNETT DO, GREER K 381.00 OTITIS MEDIA ACUTE NONSUPPURATIVE RIGHT EAR 04/13/2012 BENNETT DO, GREER K 380.10 OTITIS EXTERNA - RIGHT EAR 04/13/2012 BENNETT DO, GREER K 381.00 OTITIS MEDIA ACUTE NONSUPPURATIVE RIGHT EAR 04/13/2012 BENNETT DO, GREER K 380.10 OTITIS EXTERNA - RIGHT EAR 04/13/2012 BENNETT DO, GREER K 381.00 OTITIS MEDIA ACUTE NONSUPPURATIVE RIGHT EAR 04/13/2012 DANY SLAUGHTER APRN 380.10 OTITIS EXTERNA - RIGHT EAR 04/13/2012 DANY SLAUGHTER APRN 381.00 OTITIS MEDIA ACUTE NONSUPPURATIVE RIGHT EAR 04/13/2012 380.10 OTITIS EXTERNA - RIGHT EAR 04/13/2012 381.00 OTITIS MEDIA ACUTE NONSUPPURATIVE RIGHT EAR 06/24/2012 PADMA KOROMA, SHANNEN 346.90 MIGRAINE HEADACHE 06/24/2012 SHANNEN ROUSE MD V74.5 visit for: screening exam bact/spirochetal STD 06/24/2012 SHANNEN ROUSE MD V76.2 Cervical Pap Smear 06/24/2012 346.90 MIGRAINE HEADACHE 06/24/2012 V74.5 visit for: screening exam bact/spirochetal STD 06/24/2012 V76.2 Cervical Pap Smear 06/24/2012 346.90 MIGRAINE HEADACHE 06/24/2012 V74.5 visit for: screening exam bact/spirochetal STD 06/24/2012 V76.2 Cervical Pap Smear 06/24/2012 346.90 MIGRAINE HEADACHE 06/24/2012 V74.5 visit for: screening exam bact/spirochetal STD 06/24/2012 V76.2 Cervical Pap Smear 06/24/2012 346.90 MIGRAINE HEADACHE 06/24/2012 V74.5 visit for: screening exam bact/spirochetal STD 06/24/2012 V76.2 Cervical Pap Smear 06/24/2012 346.90 MIGRAINE HEADACHE 06/24/2012 V74.5 visit for: screening exam bact/spirochetal STD 06/24/2012 V76.2 Cervical Pap Smear 06/24/2012 MALENA NEWTON APRN A 346.90 MIGRAINE HEADACHE 06/24/2012 MALENA NEWTON APRN A V74.5 visit for: screening exam bact/spirochetal STD 06/24/2012 MALENA NEWTON APRN V76.2 Cervical Pap Smear 06/24/2012 GREER BENNETT DO 346.90 MIGRAINE HEADACHE 06/24/2012 GREER BENNETT DO V74.5 visit for: screening exam bact/spirochetal STD 06/24/2012 GREER BENNETT DO V76.2 Cervical Pap Smear 06/24/2012 GREER BENNETT DO 346.90 MIGRAINE HEADACHE 06/24/2012 GREER BENNETT DO V74.5 visit for: screening exam bact/spirochetal STD 06/24/2012 GREER BENNETT DO V76.2 Cervical Pap Smear 06/24/2012 GREER BENNETT DO 346.90 MIGRAINE HEADACHE 06/24/2012 GREER BENNETT DO V74.5 visit for: screening exam bact/spirochetal STD 06/24/2012 GREER BENNETT DO V76.2 Cervical Pap Smear 06/24/2012 MARYA ZAMAN APRN 346.90 MIGRAINE HEADACHE 06/24/2012 MARYA ZAMAN APRN V74.5 visit for: screening exam bact/spirochetal STD 06/24/2012 ZAMAN MARYA MOORE V76.2 Cervical Pap Smear 06/24/2012 SMILEY BENNETT DOA K 346.90 MIGRAINE HEADACHE 06/24/2012 SABRINA RHODES GREER K V74.5 visit for: screening exam bact/spirochetal STD 06/24/2012 SMILEY BENNETT DOA K V76.2 Cervical Pap Smear 06/24/2012 KAUR PALACIO APRN 346.90 MIGRAINE HEADACHE 06/24/2012 KAUR PALACIO APRN V74.5 visit for: screening exam bact/spirochetal STD 06/24/2012 KAUR PALACIO APRN V76.2 Cervical Pap Smear 06/24/2012 MARYA ZAMAN APRN 346.90 MIGRAINE HEADACHE 06/24/2012 MARYA ZAMAN APRN V74.5 visit for: screening exam bact/spirochetal STD 06/24/2012 MARYA ZAMAN APRN V76.2 Cervical Pap Smear 06/24/2012 GREER BENNETT DO K 346.90 MIGRAINE HEADACHE 06/24/2012 SMILEY BENNETT DOA K V74.5 visit for: screening exam bact/spirochetal STD 06/24/2012 SMILEY BENNETT DOA K V76.2 Cervical Pap Smear 06/24/2012 SMILEY BENNETT DOA K 346.90 MIGRAINE HEADACHE 06/24/2012 SMILEY BENNETT DOA K V74.5 visit for: screening exam bact/spirochetal STD 06/24/2012 SMILEY BENNETT DOA K V76.2 Cervical Pap Smear 06/24/2012 SMILEY BENNETT DOA K 346.90 MIGRAINE HEADACHE 06/24/2012 SABRINA RHODES GREER K V74.5 visit for: screening exam bact/spirochetal STD 06/24/2012 SMILEY BENNETT DOA K V76.2 Cervical Pap Smear 06/24/2012 SABRINA RHODES GREER K 346.90 MIGRAINE HEADACHE 06/24/2012 SABRINA RHODES GREER K V74.5 visit for: screening exam bact/spirochetal STD 06/24/2012 SABRINA RHODES GREER K V76.2 Cervical Pap Smear 06/24/2012 WHITE DDS, YESENIA Fay 346.90 MIGRAINE HEADACHE 06/24/2012 WHITE DDS, YESENIA Fay V74.5 visit for: screening exam bact/spirochetal STD 06/24/2012 WHITE DDSYESENIA V76.2 Cervical Pap Smear 06/24/2012 BENNETT GREER K 346.90 MIGRAINE HEADACHE 06/24/2012 SMILEY BENNETT DOA K V74.5 visit for: screening exam bact/spirochetal STD 06/24/2012 SMILEY BENNETT DOA K V76.2 Cervical Pap Smear 06/24/2012 SABRINA RHODES GREER K 346.90 MIGRAINE HEADACHE 06/24/2012 SABRINA RHODES GREER K V74.5 visit for: screening exam bact/spirochetal STD 06/24/2012 BENNETT GREER K V76.2 CERVICAL PAP SMEAR 06/24/2012 BENNETT GREER K 346.90 MIGRAINE HEADACHE 06/24/2012 SABRINA RHODES GREER K V74.5 visit for: screening exam bact/spirochetal STD 06/24/2012 SABRINA RHODES GREER K V76.2 CERVICAL PAP SMEAR 06/24/2012 DANY SLAUGHTER APRN 346.90 MIGRAINE HEADACHE 06/24/2012 DANY SLAUGHTER APRN V74.5 visit for: screening exam bact/spirochetal STD 06/24/2012 DANY SLAUGHTER APRN V76.2 CERVICAL PAP SMEAR 06/24/2012 346.90 MIGRAINE HEADACHE 06/24/2012 V74.5 visit for: screening exam bact/spirochetal STD 06/24/2012 V76.2 Cervical Pap Smear 08/16/2012 626.9 MENSTRUATION AND OTHER ABNORMAL BLEEDING FROM FEMALE GENITAL TRACT 09/21/2012 SHANNEN ROUSE MD 626.9 MENSTRUATION AND OTHER ABNORMAL BLEEDING FROM FEMALE GENITAL TRACT 09/21/2012 SHANNEN ROUSE MD 626.9 MENSTRUATION AND OTHER ABNORMAL BLEEDING FROM FEMALE GENITAL TRACT 12/08/2012 626.9 MENSTRUATION AND OTHER ABNORMAL BLEEDING FROM FEMALE GENITAL TRACT 02/17/2013 626.9 MENSTRUATION AND OTHER ABNORMAL BLEEDING FROM FEMALE GENITAL TRACT 02/23/2013 626.9 MENSTRUATION AND OTHER ABNORMAL BLEEDING FROM FEMALE GENITAL TRACT 05/03/2013 623.5 LEUKORRHEA NOT SPECIFIED INFECTIVE 05/03/2013 625.8 OTHER SPECIFIED SYMPTOMS ASSOCIATED WITH FEMALE GENITAL ORGANS 05/03/2013 787.1 HEARTBURN 05/03/2013 623.5 LEUKORRHEA NOT SPECIFIED INFECTIVE 05/03/2013 625.8 OTHER SPECIFIED SYMPTOMS ASSOCIATED WITH FEMALE GENITAL ORGANS 05/03/2013 787.1 HEARTBURN 05/03/2013 SEFERINO NEWTON APRNIDI A 623.5 LEUKORRHEA NOT SPECIFIED INFECTIVE 05/03/2013 SEFERINO NEWTON APRNIDI A 625.8 OTHER SPECIFIED SYMPTOMS ASSOCIATED WITH FEMALE GENITAL ORGANS 05/03/2013 SEFERINO NEWTON APRNIDI A 787.1 HEARTBURN 05/03/2013 BENNETT DO GREER K 623.5 LEUKORRHEA NOT SPECIFIED INFECTIVE 05/03/2013 BENNETT DO, GREER K 625.8 OTHER SPECIFIED SYMPTOMS ASSOCIATED WITH FEMALE GENITAL ORGANS 05/03/2013 BENNETT DO GREER K 787.1 HEARTBURN 05/03/2013 BENNETT DO, GREER K 623.5 LEUKORRHEA NOT SPECIFIED INFECTIVE 05/03/2013 BENNETT DO, GREER K 625.8 OTHER SPECIFIED SYMPTOMS ASSOCIATED WITH FEMALE GENITAL ORGANS 05/03/2013 SABRINA DOSMILEYA K 787.1 HEARTBURN 05/03/2013 SABRINA DOSMILEYA K 623.5 LEUKORRHEA NOT SPECIFIED INFECTIVE 05/03/2013 BENNETT DO, GREER K 625.8 OTHER SPECIFIED SYMPTOMS ASSOCIATED WITH FEMALE GENITAL ORGANS 05/03/2013 SMILEY BENNETT DOA K 787.1 HEARTBURN 05/03/2013 MARYA ZAMAN APRN 623.5 LEUKORRHEA NOT SPECIFIED INFECTIVE 05/03/2013 MARYA ZAMAN APRN 625.8 OTHER SPECIFIED SYMPTOMS ASSOCIATED WITH FEMALE GENITAL ORGANS 05/03/2013 MARYA ZAMAN APRN 787.1 HEARTBURN 05/03/2013 GREER BENNETT DO 623.5 LEUKORRHEA NOT SPECIFIED INFECTIVE 05/03/2013 SABRINA RHODES GREER K 625.8 OTHER SPECIFIED SYMPTOMS ASSOCIATED WITH FEMALE GENITAL ORGANS 05/03/2013 GREER BENNETT DO K 787.1 HEARTBURN 05/03/2013 KAUR PALACIO APRN 623.5 LEUKORRHEA NOT SPECIFIED INFECTIVE 05/03/2013 KAUR PALACIO APRN 625.8 OTHER SPECIFIED SYMPTOMS ASSOCIATED WITH FEMALE GENITAL ORGANS 05/03/2013 KAUR PALACIO APRN 787.1 HEARTBURN 05/03/2013 MARYA ZAMAN APRN 623.5 LEUKORRHEA NOT SPECIFIED INFECTIVE 05/03/2013 MARYA ZAMAN APRN 625.8 OTHER SPECIFIED SYMPTOMS ASSOCIATED WITH FEMALE GENITAL ORGANS 05/03/2013 MARYA ZAMAN APRN 787.1 HEARTBURN 05/03/2013 BENNETT DO, GREER K 623.5 LEUKORRHEA NOT SPECIFIED INFECTIVE 05/03/2013 BENNETT DO, GREER K 625.8 OTHER SPECIFIED SYMPTOMS ASSOCIATED WITH FEMALE GENITAL ORGANS 05/03/2013 BENNETT DO, GREER K 787.1 HEARTBURN 05/03/2013 BENNETT DO, GREER K 623.5 LEUKORRHEA NOT SPECIFIED INFECTIVE 05/03/2013 BENNETT DO, GREER K 625.8 OTHER SPECIFIED SYMPTOMS ASSOCIATED WITH FEMALE GENITAL ORGANS 05/03/2013 BENNETT DO, GREER K 787.1 HEARTBURN 05/03/2013 BENNETT DO, GREER K 623.5 LEUKORRHEA NOT SPECIFIED INFECTIVE 05/03/2013 BENNETT DO, GREER K 625.8 OTHER SPECIFIED SYMPTOMS ASSOCIATED WITH FEMALE GENITAL ORGANS 05/03/2013 BENNETT DO, GREER K 787.1 HEARTBURN 05/03/2013 BENNETT DO, GREER K 623.5 LEUKORRHEA NOT SPECIFIED INFECTIVE 05/03/2013 BENNETT DO, GREER K 625.8 OTHER SPECIFIED SYMPTOMS ASSOCIATED WITH FEMALE GENITAL ORGANS 05/03/2013 BENNETT DO, GREER K 787.1 HEARTBURN 05/03/2013 WHITE DDS, YESENIA D 623.5 LEUKORRHEA NOT SPECIFIED INFECTIVE 05/03/2013 WHITE DDS, YESENIA D 625.8 OTHER SPECIFIED SYMPTOMS ASSOCIATED WITH FEMALE GENITAL ORGANS 05/03/2013 WHITE DDS, YESENIA D 787.1 HEARTBURN 05/03/2013 BENNETT DO, GREER K 623.5 LEUKORRHEA NOT SPECIFIED INFECTIVE 05/03/2013 BENNETT DO, GREER K 625.8 OTHER SPECIFIED SYMPTOMS ASSOCIATED WITH FEMALE GENITAL ORGANS 05/03/2013 BENNETT DO, GREER K 787.1 HEARTBURN 05/03/2013 BENNETT DO, GREER K 623.5 LEUKORRHEA NOT SPECIFIED INFECTIVE 05/03/2013 BENNETT DO, GREER K 625.8 OTHER SPECIFIED SYMPTOMS ASSOCIATED WITH FEMALE GENITAL ORGANS 05/03/2013 BENNETT DO, GREER K 787.1 HEARTBURN 05/03/2013 BENNETT DO, GREER K 623.5 LEUKORRHEA NOT SPECIFIED INFECTIVE 05/03/2013 BENNETT DO, GREER K 625.8 OTHER SPECIFIED SYMPTOMS ASSOCIATED WITH FEMALE GENITAL ORGANS 05/03/2013 SMILEY BENNETT DOA K 787.1 HEARTBURN 05/03/2013 DANY SLAUGHTER APRN 623.5 LEUKORRHEA NOT SPECIFIED INFECTIVE 05/03/2013 DANY SLAUGHTER APRN 625.8 OTHER SPECIFIED SYMPTOMS ASSOCIATED WITH FEMALE GENITAL ORGANS 05/03/2013 DANY SLAUGHTER APRN 787.1 HEARTBURN 05/11/2013 626.9 MENSTRUATION AND OTHER ABNORMAL BLEEDING FROM FEMALE GENITAL TRACT 06/14/2013 789.09 ABDOMINAL PAIN OTHER SPECIFIED SITE 06/14/2013 V25.9 CONTRACEPTION MANAGEMENT 06/14/2013 V76.10 BREAST CANCER SCREENING 06/14/2013 MALENA NEWTON APRN A 789.09 ABDOMINAL PAIN OTHER SPECIFIED SITE 06/14/2013 MALENA NEWTON APRN A V25.9 CONTRACEPTION MANAGEMENT 06/14/2013 LAMAR MOORE MALENA A V76.10 BREAST CANCER SCREENING 06/14/2013 SMILEY BENNETT DOA K 789.09 ABDOMINAL PAIN OTHER SPECIFIED SITE 06/14/2013 SMILEY BENNETT DOA K V25.9 CONTRACEPTION MANAGEMENT 06/14/2013 BENNETT DO GREER K V76.10 BREAST CANCER SCREENING 06/14/2013 BENNETT SMILEY RHODESA K 789.09 ABDOMINAL PAIN OTHER SPECIFIED SITE 06/14/2013 SMILEY BENNETT DOA K V25.9 CONTRACEPTION MANAGEMENT 06/14/2013 BENNETT DO GREER K V76.10 BREAST CANCER SCREENING 06/14/2013 BENNETT DO GREER K 789.09 ABDOMINAL PAIN OTHER SPECIFIED SITE 06/14/2013 SABRINA RHODES GREER K V25.9 CONTRACEPTION MANAGEMENT 06/14/2013 BENNETT DO GREER K V76.10 BREAST CANCER SCREENING 06/14/2013 MARYA ZAMAN APRN 789.09 ABDOMINAL PAIN OTHER SPECIFIED SITE 06/14/2013 MARYA ZAMAN APRN V25.9 CONTRACEPTION MANAGEMENT 06/14/2013 MARYA ZAMAN APRN V76.10 BREAST CANCER SCREENING 06/14/2013 SABRINA RHODES GREER K 789.09 ABDOMINAL PAIN OTHER SPECIFIED SITE 06/14/2013 SABRINA RHODES GREER K V25.9 CONTRACEPTION MANAGEMENT 06/14/2013 BENNETT DO GREER K V76.10 BREAST CANCER SCREENING 06/14/2013 KAUR PALACIO APRN 789.09 ABDOMINAL PAIN OTHER SPECIFIED SITE 06/14/2013 KAUR PALACIO APRN V25.9 CONTRACEPTION MANAGEMENT 06/14/2013 KAUR PALACIO APRN V76.10 BREAST CANCER SCREENING 06/14/2013 JUNIE MARYA MOORE 789.09 ABDOMINAL PAIN OTHER SPECIFIED SITE 06/14/2013 ZAMAN MARYA MOORE V25.9 CONTRACEPTION MANAGEMENT 06/14/2013 JUNIE MARYA MOORE V76.10 BREAST CANCER SCREENING 06/14/2013 BENNETT DO GREER K 789.09 ABDOMINAL PAIN OTHER SPECIFIED SITE 06/14/2013 BENNETT DO GREER K V25.9 CONTRACEPTION MANAGEMENT 06/14/2013 BENNETT DO, GREER K V76.10 BREAST CANCER SCREENING 06/14/2013 BENNETT DO, GREER K 789.09 ABDOMINAL PAIN OTHER SPECIFIED SITE 06/14/2013 BENNETT DO, GREER K V25.9 CONTRACEPTION MANAGEMENT 06/14/2013 BENNETT DO GREER K V76.10 BREAST CANCER SCREENING 06/14/2013 BENNETT DO, GREER K 789.09 ABDOMINAL PAIN OTHER SPECIFIED SITE 06/14/2013 BENNETT DO, GREER K V25.9 CONTRACEPTION MANAGEMENT 06/14/2013 BENNETT DO, GREER K V76.10 BREAST CANCER SCREENING 06/14/2013 BENNETT DO, GREER K 789.09 ABDOMINAL PAIN OTHER SPECIFIED SITE 06/14/2013 BENNETT DO, GREER K V25.9 CONTRACEPTION MANAGEMENT 06/14/2013 BENNETT DO, GREER K V76.10 BREAST CANCER SCREENING 06/14/2013 WHITE DDS, YESENIA Fay 789.09 ABDOMINAL PAIN OTHER SPECIFIED SITE 06/14/2013 WHITE DDS, YESENIA Fay V25.9 CONTRACEPTION MANAGEMENT 06/14/2013 WHITE DDS, YESENIA Fay V76.10 BREAST CANCER SCREENING 06/14/2013 BENNETT DO, GREER K 789.09 ABDOMINAL PAIN OTHER SPECIFIED SITE 06/14/2013 BENNETT DO, GREER K V25.9 CONTRACEPTION MANAGEMENT 06/14/2013 BENNETT DO, GREER K V76.10 BREAST CANCER SCREENING 06/14/2013 BENNETT DO, GREER K 789.09 ABDOMINAL PAIN OTHER SPECIFIED SITE 06/14/2013 BENNETT DO, GREER K V25.9 CONTRACEPTION MANAGEMENT 06/14/2013 BENNETT DO, GREER K V76.10 BREAST CANCER SCREENING 06/14/2013 BENNETT DO, GREER K 789.09 ABDOMINAL PAIN OTHER SPECIFIED SITE 06/14/2013 BENNETT DO, GREER K V25.9 CONTRACEPTION MANAGEMENT 06/14/2013 BENNETT DO, GREER K V76.10 BREAST CANCER SCREENING 06/14/2013 DANY SLAUGHTER APRN 789.09 ABDOMINAL PAIN OTHER SPECIFIED SITE 06/14/2013 DANY SLAUGHTER APRN V25.9 CONTRACEPTION MANAGEMENT 06/14/2013 DANY SLAUGHTER APRN V76.10 BREAST CANCER SCREENING 06/14/2013 626.9 MENSTRUATION AND OTHER ABNORMAL BLEEDING FROM FEMALE GENITAL TRACT 06/14/2013 MALENA NEWTON APRN 626.9 MENSTRUATION AND OTHER ABNORMAL BLEEDING FROM FEMALE GENITAL TRACT 08/08/2013 BENNETT DO GREER K 626.9 MENSTRUATION AND OTHER ABNORMAL BLEEDING FROM FEMALE GENITAL TRACT 08/08/2013 BENNETT DO, GREER K 626.9 MENSTRUATION AND OTHER ABNORMAL BLEEDING FROM FEMALE GENITAL TRACT 09/12/2013 BENNETT DO, GREER K 626.9 MENSTRUATION AND OTHER ABNORMAL BLEEDING FROM FEMALE GENITAL TRACT 10/12/2013 MARYA ZAMAN APRN 626.9 MENSTRUATION AND OTHER ABNORMAL BLEEDING FROM FEMALE GENITAL TRACT 10/21/2013 BENNETT DO, GREER K 626.9 MENSTRUATION AND OTHER ABNORMAL BLEEDING FROM FEMALE GENITAL TRACT 10/21/2013 KAUR PALACIO APRN 626.9 MENSTRUATION AND OTHER ABNORMAL BLEEDING FROM FEMALE GENITAL TRACT 11/17/2013 MARYA ZAMAN APRN 493.90 ASTHMA UNSPECIFIED 11/17/2013 BENNETT DO, GREER K 493.90 ASTHMA UNSPECIFIED 11/17/2013 BENNETT DO, GREER K 493.90 ASTHMA UNSPECIFIED 11/17/2013 BENNETT DO, GREER K 493.90 ASTHMA UNSPECIFIED 11/17/2013 BENNETT DO, GREER K 493.90 ASTHMA UNSPECIFIED 11/17/2013 YESENIA BARNHART DDS 493.90 ASTHMA UNSPECIFIED 11/17/2013 BENNETT DO, GREER K 493.90 ASTHMA UNSPECIFIED 11/17/2013 BENNETT DO, GREER K 493.90 ASTHMA UNSPECIFIED 11/17/2013 BENNETT DO, GREER K 493.90 ASTHMA UNSPECIFIED 11/17/2013 DANY SLAUGHTER APRN 493.90 ASTHMA UNSPECIFIED 11/17/2013 MARYA ZAMAN APRN 626.9 MENSTRUATION AND OTHER ABNORMAL BLEEDING FROM FEMALE GENITAL TRACT 01/02/2014 BENNETT DO, GREER K 626.9 MENSTRUATION AND OTHER ABNORMAL BLEEDING FROM FEMALE GENITAL TRACT 03/21/2014 BENNETT DO, GREER K 626.9 MENSTRUATION AND OTHER ABNORMAL BLEEDING FROM FEMALE GENITAL TRACT 03/28/2014 BENNETT DO, GREER K 626.9 MENSTRUATION AND OTHER ABNORMAL BLEEDING FROM FEMALE GENITAL TRACT 04/21/2014 BENNETT DO, GREER K 626.9 MENSTRUATION AND OTHER ABNORMAL BLEEDING FROM FEMALE GENITAL TRACT 05/19/2014 OBEY BERRIOSSYESENIA 626.9 MENSTRUATION AND OTHER ABNORMAL BLEEDING FROM FEMALE GENITAL TRACT 08/14/2014 BENNETT DO, GREER K 681.01 FELON 08/14/2014 BENNETT DO, GREER K 681.01 FELON 08/14/2014 BENNETT DO, GREER K 681.01 FELON 08/14/2014 DANY SLAUGHTER APRN 681.01 FELON 08/14/2014 BENNETT DO, GREER K 626.9 MENSTRUATION AND OTHER ABNORMAL BLEEDING FROM FEMALE GENITAL TRACT 08/30/2014 BENNETT DO, GREER K 626.9 MENSTRUATION AND OTHER ABNORMAL BLEEDING FROM FEMALE GENITAL TRACT 12/22/2014 BENNETT DO, GREER K 626.9 MENSTRUATION AND OTHER ABNORMAL BLEEDING FROM FEMALE GENITAL TRACT 12/22/2014 DANY SLAUGHTER APRN 626.9 MENSTRUATION AND OTHER ABNORMAL BLEEDING FROM FEMALE GENITAL TRACT Procedures Code [place] [address] THERAPUTIC INJ SQ/IM 08/16/2012 J1055 DEPO-PROVERA INJ 150 MG 08/16/2012 05724 URINE TEST (IN- HOUSE) 08/16/2012 51343 THERAPUTIC INJ SQ/IM 12/08/2012 J1050 DEPO PROVERA 12/08/2012 09937 URINE TEST (IN- HOUSE) 12/08/2012 79842 UA LONG DIP 02/17/2013 71392 URINE TEST (IN- HOUSE) 02/17/2013 52523 THERAPUTIC INJ SQ/IM 02/23/2013 J1050 DEPO PROVERA 02/23/2013 28157 URINE TEST (IN- HOUSE) 02/23/2013 35544 THERAPUTIC INJ SQ/IM 05/11/2013 J1050 DEPO PROVERA 05/11/2013 53638 URINE TEST (IN- HOUSE) 05/11/2013 63273 UA LONG DIP 06/14/2013 87089 CULTURE URINE 06/15/2013 51986 STREP A (IN-HOUSE) 06/27/2013 75436 H PYLORI (IN-HOUSE) 06/27/2013 47934 THERAPUTIC INJ SQ/IM 07/27/2013 J1050 DEPO PROVERA 07/27/2013 44010 URINE TEST (IN- HOUSE) 07/27/2013 56690 CULTURE URINE 08/08/2013 GC/CHLAM GC/CHLAMYDIA PROBE/URINE 08/08/2013 30769 UA LONG DIP 08/08/2013 J1050 DEPO PROVERA 10/12/2013 19330 TEST, URINE (IN- HOUSE) 10/12/2013 28674 THERAPUTIC INJ SQ/IM 10/12/2013 00978 UA LONG DIP 10/21/2013 27338 CULTURE UROGENITAL 10/21/2013 07127 CULTURE URINE 10/21/2013 98860 TRICHOMONAS (IN-HOUSE) 10/21/2013 56613 THERAPUTIC INJ SQ/IM 12/30/2013 J1050 DEPO PROVERA 12/30/2013 54620 TEST, URINE (IN- HOUSE) 12/30/2013 92973 UA LONG DIP 03/21/2014 64987 TEST, URINE (IN- HOUSE) 03/21/2014 81765 UA LONG DIP 08/30/2014 86967 A1C (IN-HOUSE) 08/30/2014 02306 TRICHOMONAS (IN-HOUSE) 08/30/2014 35119 CULTURE UROGENITAL 08/30/2014 81757 GC/CHLAM URINE (STATE) 08/30/2014 63697 ROUTINE VENIPUNCTURE 12/22/2014 17619 CULTURE URINE 12/22/2014 36309 UA LONG DIP 12/22/2014 30277 CBC 12/22/2014 3884829 GFR CALC (RESULT ONLY) 12/22/2014 09288 CMP 12/22/2014 Results There is no data. Encounters ACCT No. Visit Date/Time Discharge Status Pt. Type Provider Facility Loc./Unit Complaint [id number] 02/18/2013 12:35:00 02/18/2013 17:33:00 DIS Emergency [id number] 12/22/2014 09:53:00 12/22/2014 23:59:59 CLS Outpatient BENNETT DOGREER [place] [id number] 12/22/2014 09:53:00 12/22/2014 23:59:59 CLS Outpatient DANY SLAUGHTER APRN [id number] 08/30/2014 10:13:00 08/30/2014 23:59:59 CLS Outpatient BENNETT DOGREER [place] [id number] 08/14/2014 10:21:00 08/14/2014 23:59:59 CLS Outpatient BENNETT DOGREER [place] [id number] 05/19/2014 12:22:00 05/19/2014 23:59:59 CLS Outpatient YESENIA BARNHART DDS [place] [id number] 04/21/2014 12:28:00 04/21/2014 23:59:59 CLS Outpatient BENNETT DOSMILEYIsabel Hahn [id number] 03/21/2014 15:14:00 03/21/2014 23:59:59 CLS Outpatient BENNETT DOSMILEYIsabel Hahn [id number] 03/21/2014 15:14:00 03/21/2014 23:59:59 CLS Outpatient BENNETT DOSMILEYIsabel Hahn [id number] 12/30/2013 09:00:00 12/30/2013 23:59:59 CLS Outpatient BENNETT DOSMILEYIsabel Hahn [id number] 11/17/2013 15:18:00 11/17/2013 23:59:59 CLS Outpatient MARYA ZAMAN APRN [id number] 10/21/2013 13:23:00 10/21/2013 23:59:59 CLS Outpatient KAUR PALACIO APRN [id number] 10/21/2013 13:23:00 10/21/2013 23:59:59 CLS Outpatient BENNETT DOGREER [id number] 10/12/2013 09:47:00 10/12/2013 23:59:59 CLS Outpatient MARYA ZAMAN APRN [id number] 09/12/2013 14:14:00 09/12/2013 23:59:59 CLS Outpatient BENNETT DO GREER [place] [id number] 08/08/2013 11:56:00 08/08/2013 23:59:59 CLS Outpatient BENNETT DO GREER H[place] [id number] 08/08/2013 11:56:00 08/08/2013 23:59:59 CLS Outpatient SABRINA GREER RHODES [place] [id number] 06/14/2013 10:41:00 06/14/2013 23:59:59 CLS Outpatient MALENA NEWTON APRN [id number] 12/08/2012 15:29:00 12/08/2012 23:59:59 CLS Outpatient [id number] 09/21/2012 13:30:00 09/21/2012 23:59:59 CLS Outpatient SHANNEN ROUSE MD [id number] 08/16/2012 10:55:00 08/16/2012 23:59:59 CLS Outpatient [id number] 06/14/2013 10:41:00 Document Registration [id number] 05/11/2013 15:23:00 Document Registration [id number] 02/23/2013 15:04:00 Document Registration [id number] 02/17/2013 15:38:00 Document Registration
== END 2017-11-20 14:48 | disposition home or self-care (01) ==
LOC: EDUNIT# 13:09 → ER 13:11
DX: J11.1 Influenza due to unidentified influenza virus with other respiratory manifestations (principal); F32.9 Major depressive disorder, single episode, unspecified; Z88.1 Allergy status to other antibiotic agents; Z87.59 Personal history of other complications of pregnancy, childbirth and the puerperium; Z87.448 Personal history of other diseases of urinary system
CPT/HCPCS: 84703; 87804; 99282

== ENCOUNTER → 2021-02-19 | Outpatient (CLI) | payer MEDICAID, MEDICARE ==
--- NOTE | 2021-02-19 10:28 | Diagnostic Imaging Report ---
INDICATION: Epigastric pain Gallbladder sonography performed in the routine fashion. The liver shows no focal lesions. There is diffuse increased echogenicity of the liver compatible with fatty infiltration. Portal vein is patent with hepatopetal flow. Gallbladder shows multiple stones layering posteriorly. There is no significant gallbladder wall thickening. Common duct is not well seen due to overlying gas. Pancreas is obscured by overlying gas. IVC and aorta are also partially obscured by overlying gas. Right kidney measured 11.2 cm in length and appear normal. There is no ascites. IMPRESSION: There are multiple gallstones layering posteriorly, without significant gallbladder wall thickening. Common duct could not be visualized. There is diffuse fatty infiltration of the liver. Dictated by: Dictated on workstation # [id number]
== END ==
LOC: RAD 08:52
PROVIDERS: ATTEND Surgery
DX: K80.80 Other cholelithiasis without obstruction (principal); K76.0 Fatty (change of) liver, not elsewhere classified
CPT/HCPCS: 76705

== ENCOUNTER 2021-03-07 05:35 | Outpatient (RCR) | payer MEDICARE ==
[~2021-03-07] VITALS: Ht 175.3 cm; Wt 133.2 kg
[~2021-03-07 05:35] MED LIST changes: +BUSP5TAB59 PO; +CYCL1DRO OP; +ESCI20TA39 PO; +LAMO100T5 PO; +MONT10TA32 PO; +NORG-20 PO; +PANT40TA52 PO; +PRAZ1CAP2 PO; +RT-ALBUINH IH; +SUCR1TAB PO; +TOPI50TA13 PO
== END 2021-03-07 08:42 | disposition home or self-care (01) ==
LOC: PREOP 05:35
PROVIDERS: ATTEND Surgery
DX: Z01.812 Encounter for preprocedural laboratory examination (principal); K21.9 Gastro-esophageal reflux disease without esophagitis; Z20.822 Contact with and (suspected) exposure to COVID-19
CPT/HCPCS: 87635

== ENCOUNTER 2021-03-11 10:31 | Day surgery (SDC) | payer MEDICARE, MEDICAID ==
[~2021-03-11] VITALS: Ht 175.3 cm; Wt 133.2 kg
[2021-03-11] MEDS ORDERED: LACTATED RINGERS 1,000 ML IV ONE (11:17)
[2021-03-11] MEDS ORDERED: LACTATED RINGERS 1,000 ML IV STA (11:49)
--- NOTE | 2021-03-11 11:59 | Progress Note-Pre Operative ---
Pre-Operative Progress Note H&P Reviewed The H&P was reviewed, patient examined and no changes noted. Time Seen by Provider: 11:58 Date H&P Reviewed: Mar 11, 2021 Time H&P Reviewed: 11:58 Pre-Operative Diagnosis: RUQ pain, Chronic Gastritis YOVANA PITTS DO Mar 11, 2021 11:59
[2021-03-11 12:00] VITALS: BP 113/54
[2021-03-11] MEDS ORDERED: HURRICAINE EXT TUBE (BENZOCAINE) XX PRN (12:00)
[2021-03-11] MEDS ORDERED: proPOfol 200 MG/20 ML (DIPRIVAN) VIAL IV ONE ×2 (12:36→12:53)
[2021-03-11] MEDS ORDERED: MIDAZOLAM 2 MG/2 ML (VERSED) VIAL ONE (12:36)
[2021-03-11 13:05] VITALS: BP 150/70
[2021-03-11 13:10] VITALS: BP 119/58
--- NOTE | 2021-03-11 13:10 | Progress Note-Post Operative ---
Post-Operative Progess Note Surgeon (s)/Cnc Operator Programmer (s) Surgeon YOVANA PITTS DO Cnc Operator Programmer: none Pre-Operative Diagnosis RUQ pain, Chronic Gastritis Post-Operative Diagnosis Severe Gastritis Inflammatory polyps Hiatal hernia esophagitis Procedure & Operative Findings Date of Procedure 03/11/21 Procedure Performed/Findings 1. EGD with biopsy 2. EGD with snare removal of polyp PROCEDURE NOTE: After informed consent was obtained, the patient was brought to the endoscopy suite, placed in bed in left lateral decubitus position. She was administered IV sedation by the AUTOMATION TECHNICIAN who then monitored her vitals the entire time, heart rate, blood pressure and pulse ox and the scope was inserted down the mouth through the esophagus into the stomach. On the way down, noted mild esophagitis, took a picture, pushed into the stomach, pushed past the antrum into the duodenum. Duodenum looked good. In the stomach noted severe gastritis and took several pictures. I also noted at least two inflammatory polyps. Pulled back and did a biopsy of the antrum and then 2 biopsies of the body of the stomach. I then used a snare to remove two inflammatory polyps. Then retroflexed the scope, saw a moderate size hiatal hernia, took a picture of this and then pulled the scope into the GE junction, took another picture of the hiatal hernia and then did a biopsy of the GE junction. Pushed the scope back into the stomach, suctioned all the air out of the stomach and then pulled the scope up the esophagus, took some pictures in the esophagus. At this point pulled the scope up the esophagus and out the mouth. The patient tolerated the procedure, and she recovered in endoscopy suite. Anesthesia Type IV sedation by AUTOMATION TECHNICIAN Estimated Blood Loss Estimated blood loss (mL): scant Specimens/Packing Specimens Removed antral bx body of stomach bx GE jxn bx 2Gastric polyps YOVANA PITTS DO Mar 11, 2021 13:09
--- NOTE | 2021-03-11 13:10 | Endoscopy Discharge Instruct ---
Endo Procedure/Findings Findings 1.: Gastritis 2.: Polyp 3.: Hiatal Hernia Discharge Instructions - Activity: You might feel a little sleepy until tomorrow. This is due to the medicine you received to relax you. Until tomorrow, you should: NOT drive a car, operate machinery or power tools. NOT drink any alcoholic beverages. NOT make any important decisions or sign importortant papers. Do not return to work until tomorrow, unless otherwise instructed. Resume previous activities tomorrow. Diet: Start by taking liquids. If you tolerate liquids, advance to solid food. 1.: EGD in 6-8 weeks Notify Physician - If you experience excessive bleeding, unusual abdominal pain, fever, or chest pain, contact your doctor immediately. YOVANA PITTS DO Mar 11, 2021 13:10
--- NOTE | 2021-03-11 13:29 | Anesthesia-General Post-Op ---
MAC Patient Condition Mental Status/LOC: Same as Preop Cardiovascular: Satisfactory Nausea/Vomiting: Absent Respiratory: Satisfactory Pain: Controlled Complications: Absent Post Op Complications Complications None Follow Up Care/Instructions Patient Instructions None needed. Anesthesiology Discharge Order Discharge Order Patient is doing well, no complaints, stable vital signs, no apparent adverse anesthesia problems. ADRIANA MARTINO DO Mar 11, 2021 13:29
[2021-03-11 13:33] VITALS: BP 125/72
[2021-03-11 13:35] VITALS: BP 125/72
[2021-03-11] MEDS ORDERED: HURRICAINE EXT TUBE (BENZOCAINE) ONE (13:55)
== END 2021-03-11 13:36 | disposition home or self-care (01) ==
LOC: ENDO 10:31
PROVIDERS: ATTEND Surgery
DX: K29.50 Unspecified chronic gastritis without bleeding (principal); K21.00 Gastro-esophageal reflux disease with esophagitis, without bleeding; A04.8 Other specified bacterial intestinal infections; K31.7 Polyp of stomach and duodenum; K44.9 Diaphragmatic hernia without obstruction or gangrene; J45.909 Unspecified asthma, uncomplicated; K21.9 Gastro-esophageal reflux disease without esophagitis; G43.909 Migraine, unspecified, not intractable, without status migrainosus; Z79.899 Other long term (current) drug therapy; Z88.1 Allergy status to other antibiotic agents; Z88.5 Allergy status to narcotic agent; Z80.0 Family history of malignant neoplasm of digestive organs
CPT/HCPCS: 84703

== ENCOUNTER → 2021-04-02 | Outpatient (CLI) | payer MEDICARE, MEDICAID | LOC: LAB 14:50 | PROVIDERS: ATTEND Surgery | DX: Z01.89 Encounter for other specified special examinations (principal) ==

== ENCOUNTER 2021-04-24 06:00 | Outpatient (CLI) | payer MEDICARE, MEDICAID ==
[~2021-04-24] VITALS: Ht 175.3 cm; Wt 133.0 kg
[2021-04-24] MEDS ORDERED: LANS15CA21 PO (09:13)
[2021-04-24] MEDS ORDERED: DEXM5TAB PO (09:13)
[2021-04-24] MEDS ORDERED: FEXO180T84 PO (09:13)
[2021-04-24] MEDS ORDERED: BUDE10.2 IH (09:13)
[2021-04-24] MEDS ORDERED: OXYB5TAB13 PO (09:13)
== END 2021-04-24 09:52 | disposition home or self-care (01) ==
LOC: PREOP 06:00
PROVIDERS: ATTEND Surgery
DX: Z01.818 Encounter for other preprocedural examination (principal)

== ENCOUNTER 2021-05-01 09:23 | Day surgery (SDC) | payer MEDICARE, MEDICAID ==
[2021-05-01] VITALS (10 sets, daily range): BP systolic 113–136; BP diastolic 49–85
[~2021-05-01] VITALS: Ht 175 cm; Wt 133.0 kg
[~2021-05-01 09:23] MED LIST changes: +BUDE10.2 IH; +DEXM5TAB PO; +FEXO180T84 PO; +LANS15CA18 PO; +OXYB5TAB13 PO
[2021-05-01] MEDS ORDERED: LIDOCAINE/EPI 1%-1:100,000 (XYLOCAINE) 20ML ONE (10:21)
[2021-05-01] MEDS ORDERED: SUCCINYLCHOLINE INJ 100 MG/5 ML SYR/VIAL ONE (10:28)
[2021-05-01] MEDS ORDERED: fentaNYL INJ 100 MCG/2 ML AMP ONE (10:28)
[2021-05-01] MEDS ORDERED: LIDOCAINE PF 2% 5 ML (XYLOCAINE) VIAL ONE (10:28)
[2021-05-01] MEDS ORDERED: ROCURONIUM 10 MG/ML 5 ML SYRINGE IV ONE (10:28)
[2021-05-01] MEDS ORDERED: MIDAZOLAM 2 MG/2 ML (VERSED) VIAL ONE (10:28)
[2021-05-01] MEDS ORDERED: proPOfol 200 MG/20 ML (DIPRIVAN) VIAL IV ONE (10:28)
[2021-05-01] MEDS ORDERED: ONDANSETRON 4 MG/2 ML (SDV) Z0FRAN ONE ×3 (10:28→14:27)
[2021-05-01] MEDS ORDERED: ONDANSETRON 4 MG/2 ML (SDV) Z0FRAN IV ONE (10:30)
[2021-05-01] MEDS ORDERED: MIDAZOLAM 2 MG/2 ML (VERSED) VIAL IV ONE (10:30)
[2021-05-01] MEDS ORDERED: FAMOTIDINE 20MG/2ML IV (PEPCID) IV ONE (10:30)
[2021-05-01] MEDS: LACTATED RINGERS 1,000 ML IV PRN ×2 (10:53→13:25)
[2021-05-01] MEDS ORDERED: ceFAZolin 2 GM IV Premixed 50 ML ONE (12:54)
--- NOTE | 2021-05-01 12:54 | Progress Note-Pre Operative ---
Pre-Operative Progress Note H&P Reviewed The H&P was reviewed, patient examined and no changes noted. Time Seen by Provider: 12:50 Date H&P Reviewed: May 01, 2021 Time H&P Reviewed: 12:50 Pre-Operative Diagnosis: Cholelithiasis/Cholecystitis YOVANA PITTS DO May 01, 2021 12:54
[2021-05-01] MEDS ORDERED: NEOSTIGMINE 3 MG/3 ML VIAL ONE (13:10)
[2021-05-01] MEDS ORDERED: GLYCOPYRROLATE 0.2 MG/ML (ROBINUL) 2 ML VIAL ONE (13:10)
[2021-05-01] MEDS ORDERED: SEVOFLURANE (ULTANE) 15 ML INHAL SOLN ONE (13:48)
--- NOTE | 2021-05-01 13:55 | Progress Note-Post Operative ---
Post-Operative Progess Note Surgeon (s)/Price Analyst (s) Surgeon YOVANA PITTS DO Price Analyst: Lyn Pre-Operative Diagnosis Cholelithiasis/Cholecystitis Post-Operative Diagnosis same Procedure & Operative Findings Date of Procedure 05/01/21 Procedure Performed/Findings PROCEDURE: Laparoscopic cholecystectomy with intraoperative cholangiogram. COMPLICATIONS: None. PROCEDURE: The patient was taken to the operating suite and was prepped and draped in sterile fashion. A surgical pause was performed. Just superior to the umbilicus, a 12 mm incision was made. Dissection was taken down to the fascia, which was then scored and grasped with a Parker and the abdomen was then entered. A 0 Vicryl suture was placed in a [id number] fashion and a Craven trocar was placed and secured. Pneumoperitoneum was achieved. A 5mm trochar place in the subxyphoid and 2 in the right upper quadrant. The gallbladder was then grasped and elevated. Found Hydrops of the gallbladder. The cystic duct, and cystic artery were then dissected out. Clip was placed on the distal portion of the cystic duct which was then partially transected. An arrow catheter was inserted into the duct. The cholangiogram was then performed. No filing defects and contrast made its way into the duodenum. Catheter removed. Clips were placed on proximal portion of the cystic duct and then the duct was then transected. Clips were placed along the proximal and distal portion of the cystic artery which was then transected. Hook cautery was used to dissect the gallbladder from the gallbladder fossa achieving hemostasis. The gallbladder was placed in an Endobag and removed through the 12 mm trocar site. The abdomen was then reinspected. Copious amounts of irrigation were used to irrigate the abdomen and there were no signs of active bleeding. Hemostasis had been achieved. The 12 mm fascial defect was then closed with 0 Vicryl suture that had been placed in a [id number] fashion. The abdomen was then desufflated, the trocars were removed. The abdomen was then washed and dried. The skin was then closed using 4-0 Monocryl in a subcuticular fashion. The abdomen was washed and dried and Skin Affix was place over incisions. Patient tolerated the procedure well without any complications and was taken to the recovery room in stable condition. Lyn assisted on this case helping to make incisions, close incisions, identify anatomy and hold anatomy out of the way. Anesthesia Type GET Estimated Blood Loss Estimated blood loss (mL): less than 10ml Specimens/Packing Specimens Removed GB and contents YOVANA PITTS DO May 01, 2021 13:55
--- NOTE | 2021-05-01 13:57 | Discharge Inst-Surgical ---
Discharge Inst-Surgical Depart Medication/Instructions New, Converted or Re-Newed RX: Transmitted to Pharmacy Patient Instructions Follow up Appt: Make appointment for 1 week. [phone] Instructions: No lifting greater than 20 pounds. No strenuous activity. May shower in 24 hours, no tub bath or soaking. Use incentive spirometer at home as directed. No Smoking Skin/Wound Care: May remove bandages in am. You need to leave the Dermabond on incision it will fall off on it's own. Symptoms to Report: Appetite Changes, Extremity Discoloration, Numbness/Tingling, Swelling Increased, Bleeding Excessive, Eyesight Changes, Pain Increased, Urine Color Change, Constipation(Persistent), Fever over 101 degree F, Pain/Pressure in chest, Urinating Difficulty, Cough Up/Vomit Blood, Heart Beat Irreg/Pounding, Pain/Pressure in jaw, Cramps in feet or legs, Lightheadedness, Pain/Pressure in shoulder, Diarrhea(Persistent), Memory Changes Suddenly, Questions/Concerns, Weight gain consecutive days, Dizziness/Fainting, Nausea/Vomiting, Shortness of Breath, Weight gain over 2 pounds If questions or concerns contact your physician Or seek help at emergency department. Activity Activity as Tolerated: Yes Activity Instructions: Avoid Stress to Incision Driving Instructions: No Driving/Refer to Diet Discharge Diet: Avoid Fatty Foods, Low Fat/Low Cholesterol Diet After 24 Hours: Clear Liquid if Nauseous If Any Problems/Questions/Issu: Contact Your Physician, Go to Emergency Room Skin/Wound Care Infection Signs and Symptoms: Increased Redness, Foul Odor of Wound, Increased Drainage, Skin Itchy or Has a Rash, Increased Swelling, Temperature Above 101 F Wound Care Comment: heating pad to shoulder or neck for pain tonight Bathing Instructions: Shower Stitches/Smoot/Dermabond Dis: Dermabond Ice Pack: Ice On and Off Site YOVANA PITTS DO May 01, 2021 13:57
[2021-05-01] MEDS ORDERED: TRAM50TA3 PO (13:58)
[2021-05-01] MEDS ORDERED: morphine INJ 10 MG/ML 1ML (SYR OR VIAL) ONE (14:10)
[2021-05-01] MEDS ORDERED: HYDROmorphone 2 MG/ML VIAL (DILAUDID) IV ONE (14:15)
[2021-05-01] MEDS ORDERED: morphine INJ 10 MG/ML 1ML (SYR OR VIAL) IVP ONE (14:15)
[2021-05-01] MEDS: ONDANSETRON 4 MG/2 ML (SDV) Z0FRAN IVP PRN ×2 (14:18→14:29)
--- NOTE | 2021-05-01 15:15 | Diagnostic Imaging Report ---
Fluoroscopy up to one hour Indication: Right upper quadrant pain Fluoroscopic assistance was provided for Dr. Micah Holliday during his laparoscopic cholecystectomy. 12.3 seconds of fluoroscopy time was utilized. 65 spot films were obtained. There are laparoscopic devices in place. The common bile duct has been opacified via a cystic duct catheter. The duct appears to be patent. There is no sign of retained calculus. Contrast is seen extending into the small bowel. Impression: Fluoroscopic assistance was provided for Dr. Micah Holliday. Dictated by: Dictated on workstation # [id number]
--- NOTE | 2021-05-01 15:22 | Anesthesia-General Post-Op ---
General Patient Condition Mental Status/LOC: Same as Preop Cardiovascular: Satisfactory Nausea/Vomiting: Absent Respiratory: Satisfactory Pain: Controlled Complications: Absent Post Op Complications Complications None Follow Up Care/Instructions Patient Instructions None needed. Anesthesia/Patient Condition Patient Condition Patient is doing well, no complaints, stable vital signs, no apparent adverse anesthesia problems. ADRIANA MARTINO DO May 01, 2021 15:22
== END 2021-05-01 17:05 | disposition home or self-care (01) ==
LOC: SDC 09:23
PROVIDERS: ATTEND Surgery
DX: K80.10 Calculus of gallbladder with chronic cholecystitis without obstruction (principal); A04.8 Other specified bacterial intestinal infections; J45.909 Unspecified asthma, uncomplicated; K21.9 Gastro-esophageal reflux disease without esophagitis; E66.9 Obesity, unspecified; F31.9 Bipolar disorder, unspecified; F90.9 Attention-deficit hyperactivity disorder, unspecified type; Z79.899 Other long term (current) drug therapy; Z68.41 Body mass index [BMI] 40.0-44.9, adult; Z80.0 Family history of malignant neoplasm of digestive organs
CPT/HCPCS: 76000; 84703; 87081

== ENCOUNTER → 2022-12-16 | Outpatient (CLI) | payer MEDICARE, MEDICAID ==
[~2022-12-16] MED LIST changes: +ALBU8.5H6 IH; +MONT-40 PO; -MONT10TA32 PO; -RT-ALBUINH IH; +RT-ALBUTEROL SULF 2.5 MG/3 ML PRE-MIX VIAL INH ONE; +TRAM50TA3 PO
== END ==
LOC: RT 06:53
PROVIDERS: ATTEND Nurse Practitioner Family
DX: J45.20 Mild intermittent asthma, uncomplicated (principal); E66.01 Morbid (severe) obesity due to excess calories
CPT/HCPCS: 94060; 94726; 94729

== ENCOUNTER 2023-01-20 09:20 | Outpatient (CLI) | payer MEDICARE, MEDICAID ==
[~2023-01-20 09:20] MED LIST changes: -RT-ALBUTEROL SULF 2.5 MG/3 ML PRE-MIX VIAL INH ONE; +TOPI-241 PO; -TOPI50TA13 PO
== END 2023-01-20 09:45 ==
LOC: SLEEP 09:20
PROVIDERS: ATTEND Nurse Practitioner Family
DX: G47.19 Other hypersomnia (principal)
CPT/HCPCS: G0399